=== PATIENT | female | born 1990 | race Caucasian/White ===

== ENCOUNTER 2019-07-22 08:11 | Inpatient (IN) ==
[2019-07-22] MEDS ORDERED: ONDANSETRON INJ 2 MG/ML 2 ML VIAL IV STA (08:28)
[2019-07-22] MEDS ORDERED: ACETAMINOPHEN 1,000 MG/100 ML VIAL IV STA (08:28)
[2019-07-22] MEDS ORDERED: SODIUM CHLORIDE 0.9% 1000ML 1,000 ML IV ONE (08:28)
[2019-07-22] MEDS ORDERED: DICLOFENAC SOD 1% GEL 100 GM TUBE EXT STA (08:28)
[2019-07-22 09:19] LABS: Basophils # (auto) 0.02 K/uL (0-0.2); Basophils % (auto) 0.1 %; Eosinophils # (auto) 0.02 K/uL (0-0.5); Eosinophils % (auto) 0.1 %; Hematocrit (blood only) 35.6 % (37-47); Hemoglobin 12.1 g/dL (12.0-16.0); Immature Granulocytes # (auto) 0.08 K/uL (0.00-0.02); Immature Granulocytes % (auto) 0.3 %; Lymphocytes # (auto) 2.16 K/uL (1.2-3.4); Lymphocytes % (auto) 8.8 %; Mean Corpuscular Hemoglobin 31.9 pg (25-34); Mean Corpuscular Volume 93.9 fL (80-100); Monocytes # (auto) 2.65 K/uL (0.11-0.59); Monocytes % (auto) 10.8 %; Neutrophils # (auto) 19.51 K/uL (1.4-6.5); Neutrophils % (auto) 79.9 %; Platelet Count 360 K/uL (130-400); RDW Coefficient of Variation 12.7 % (11.5-14.5); RDW Standard Deviation 43.8 fL (36.4-46.3); Red Blood Count 3.79 M/uL (4.2-5.4); White Blood Count 24.44 K/uL (4.8-10.8)
[2019-07-22 09:37] LABS: Alanine Aminotransferase 33 U/L (12-78); Albumin Level 3.6 gm/dl (3.4-5.0); Aspartate Aminotransferase 13 U/L (15-37); Blood Urea Nitrogen 10 mg/dl (7-18); Carbon Dioxide 26 mmol/L (21-32); Chloride 103 mmol/L (98-107); Creatinine Clr Calc Pharmacy 131.5 ml/min; Est GFR (African American) 147.9; Est GFR (Non-African American) 127.6; Glucose 106 mg/dl (70-99); Potassium 3.3 mmol/L (3.5-5.1); Sodium 135 mmol/L (136-145)
[2019-07-22 09:39] LABS: Pregnancy Test, Serum Negative (Negative)
[2019-07-22 09:41] LABS: D Dimer 370 ug/L FEU (0-500)
[2019-07-22 09:42] LABS: Albumin Globulin Ratio 0.9 (0.9-2); Alkaline Phosphatase 74 U/L (45-117); Bilirubin,Total 0.7 mg/dl (0.2-1); Total Protein 7.6 gm/dl (6.4-8.2); Troponin I < 0.015 ng/ml (0-0.045)
--- NOTE | 2019-07-22 10:14 | XRay Report ---
XR chest 2V PA/lateral CLINICAL HISTORY: 28 years-old Female presenting with right thoracic back pain. TECHNIQUE: PA and lateral views of the chest were obtained. COMPARISON: None. FINDINGS: Cardiomediastinal silhouette normal. Lungs and pleural spaces clear. Osseous structures normal. Upper abdomen normal. IMPRESSION: 1. No acute cardiopulmonary disease. ACT 112: Negative or not required by law. Electronically signed by: Jose Crawford M.D. 07/22/2019 10:13 AM
--- NOTE | 2019-07-22 10:32 | XRay Report ---
XR thoracic spine 3V routine CLINICAL HISTORY: right thoracic back pain COMPARISON STUDY: No previous studies for comparison. FINDINGS: No thoracic spine fracture is noted. No osseous lesion is identified by radiography. Patien t is mildly rotated. Disc spaces are preserved. IMPRESSION: No thoracic spine fracture or subluxation. ACT 112: Negative or not required by law. Electronically signed by: Reece Kohler M.D. 07/22/2019 10:31 AM
[2019-07-22] MEDS ORDERED: KETOROLAC TROMETHAMINE 15 MG/ML VIAL IV ONE ×2 (11:38→21:59)
[2019-07-22] MEDS ORDERED: GADOBUTROL 65ML VIAL IV PRN (14:18)
--- NOTE | 2019-07-22 14:37 | Magnetic Resonance Report ---
MR thoracic spine wo/w con CLINICAL HISTORY: 28 years-old Female presenting with back pain, ivda. TECHNIQUE: Multisequence, multiplanar MR imaging of the thoracic spine was performed before and after the administration of intravenous contrast. IV contrast: 6 mL of Gadavist. COMPARISON: Radiographs from earlier the same day. FINDINGS: Localizer images: Unremarkable. Normal thoracic kyphosis. Vertebral bodies maintain normal height, alignment, and bone marrow signal intensity. Intervertebral discs preserved apart from small disc osteophyte complex at T6-7, which varghese s not result in significant spinal canal narrowing. No epidural collection. Muscle edema noted in the right paraspinal region extending from T1 superiorly to T10 inferiorly and most severely affecting the T3-T7 levels. Diffuse increased enhancement of this region on postcontras t imaging. Patchy enhancement without evidence of a rim-enhancing collection. No evidence of abscess. This abnormal enhancement does not appear to extend into the epidural region. There is also associat ed abnormal enhancement of the right pleura. Trace right pleural effusion noted. Flow-voids within the vasculature preserved. Visualized portion of the lung parenchyma with minimal d ependent changes on the right. No focal nodule or infiltrate is appreciated allowing for the sensitiv ity of MRI. IMPRESSION: 1. Extensive muscle inflammation and abnormal enhancement in the right paraspinal musculature throug hout the thoracic region. This is concerning for infectious myositis. 2. No abscess or epidural extension is appreciated. No associated evidence of septic facet arthritis or discitis osteomyelitis. However, there is associated trace right pleural effusion and pleuritis. ACT 112: Negative or not required by law. Electronically signed by: Jose Crawford M.D. 07/22/2019 2:36 PM
[2019-07-22] MEDS ORDERED: VANCOMYCIN CONSULT ACTIVE ONE (14:42)
[2019-07-22] MEDS ORDERED: VANCOMYCIN CONSULT ACTIVE PRN (14:42)
[2019-07-22] MEDS ORDERED: VANCOMYCIN HCL 1,250 MG in SODIUM CHLORIDE 0.9% 500 ML IV ONE (14:42)
[2019-07-22] MEDS ORDERED: PIPERACILLIN/TAZOBACTAM 4.5 GM/120 ML BAG IV ONE (14:43)
[2019-07-22] MEDS ORDERED: PIPERACILL/TAZOBAC CONSULT ACTIVE PRN (14:43)
--- NOTE | 2019-07-22 14:43 | Magnetic Resonance Report ---
MRI OF THE LUMBAR SPINE WITH AND WITHOUT CONTRAST CLINICAL HISTORY: back pain, ivda COMPARISON STUDY: No previous studies for comparison. TECHNIQUE: Utilizing a 1.5 Cary magnet and dedicated coil, multiplanar, multiecho imaging of the sotero mbar spine was performed before and after uneventful IV administration of 6 mL of Gadavist. FINDINGS: Alignment of the lumbar spine is anatomic. Vertebral body heights are maintained. There is no marrow edema or marrow placement. No intracanalicular mass or fluid collection is present. The conus termina shonda at the upper L1 level. Paravertebral soft tissues are unremarkable. Incidental note is made of sm all gallstones within the gallbladder. Disc spaces are preserved. L1-2: The central canal and neural foramen are patent. L2-3: The central canal and neural foramen are patent L3-4: The central canal and neural foramen are patent L4-5: The central canal and neural foramen are patent L5-S1: The central canal and neural foramen are patent IMPRESSION: 1. Normal MRI of the lumbar spine. 2. Cholelithiasis. ACT 112: Negative or not required by law. Electronically signed by: Reece Kohler M.D. 07/22/2019 2:41 PM
--- NOTE | 2019-07-22 16:02 | Electrocardiogram Report ---
Test Reason : Blood Pressure : / mmHG Vent. Rate : 092 BPM Atrial Rate : 092 BPM P-R Int : 150 ms QRS Dur : 096 ms QT Int : 352 ms P-R-T Axes : 056 062 053 degrees QTc Int : 435 ms Normal sinus rhythm Possible Left atrial enlargement Left ventricular hypertrophy Abnormal ECG No previous ECGs available Confirmed by Fritz Noble ([id number]) on 07/22/2019 4:02:17 PM Referred By: Confirmed By:Fritz Noble
[2019-07-22] MEDS ORDERED: POTASSIUM CHLORIDE 20 MEQ TABCR PO STA (16:32)
--- NOTE | 2019-07-22 16:36 | History & Physical Report ---
Date of Service July 22, 2019 Assessment & Plan (1) Back pain: (2) Leukocytosis: (3) Myositis: Pt is 28 y/o F with PMH IV drug abuse, chronic hepatitis C, Chiari malformation, depression presented to ER with complaint of right upper back pain x 3 days. Complains of sharp pain over right scapular region which has increased over the past 3 days. Denies any radiation of pain or extremity pain. Denies fever/chills. In ER afebrile, P: 97, R: 20, BP: 118/74, 98% on RA. WBC: 24, H/H: 12/35. Pt difficult venous access, no lactate drawn T-SPINE MRI: 1. Extensive muscle inflammation and abnormal enhancement in the right paraspinal musculature throughout the thoracic region. This is concerning for infectious myositis. 2. No abscess or epidural extension is appreciated. No associated evidence of septic facet arthritis or discitis osteomyelitis. However, there is associated trace right pleural effusion and pleuritis. L-SPINE MRI: 1. Normal MRI of the lumbar spine. 2. Cholelithiasis. Possible Infectious myositis paraspinous musculature No sign of abscess, discitis or osteomyelitis on MRI spine -In ER given Zosyn, vancomycin, 1L NSS, Toradol, IV Tylenol, Zofran -Blood cultures pending -ESR, CRP pending -Zosyn, vancomycin -IVF -CBC, BMP in am -If would develop other signs of abscess or worsening consider surgery consult (4) IV drug abuse: H/O IV Heroin, IV Suboxone use. Reports last used 04/2019 -Urine tox screen pending (5) Hypokalemia: K: 3.3 -replace and monitor (6) Chronic hepatitis C: Not treated; Was following with graphic engineer in 2019 and was to have treatment however never followed up. LFTs WNL (7) Tobacco abuse: -Smoking cessation recommended -Nicotine patch DVT Prophylaxis -Low risk, ambulate Full Code Does not Follows with PCP for routine care Pt was seen and care coordinated with Dr Blanton. See addendum History of Present Illness Chief Complaint: Back pain Primary Care Provider: NO PCP Pt is 28 y/o F with PMH IV drug abuse, chronic hepatitis C, Chiari malformation, depression presented to ER with complaint of right upper back pain x 3 days. Complains of sharp pain over right scapular region which has increased over the past 3 days. Denies any radiation of pain. Denies pain to neck, lower back, arms or chest. Denies any noted skin discolorations or erythema over the area or any drainage. Denies any injury or trauma. Denies any injections to the area. History IV heroin and IV Suboxone use. Patient reports last used April 2019 and injects to arms only. Denies any noted fever or chills. States a little nauseated today which she associated secondary to pain. She took [id number] ibuprofen without relief and took 1 oxycodone which she reports was her family members medication without relief. Reports chronic acne to face, chest, back, denies any other known rashes. Denies diaphoresis, V/D/C, REAVES, dizziness, syncope, vision changes, neck pain, CP, SOB, orthopnea, palpitations, cough, sore throat, choking, otalgia, rhinorrhea, abdominal pain, paresthesias, weakness, extremity weakness, extremity edema, urinary symptoms. Allergies Allergy/AdvReac Type Severity Reaction Status Date / Time No Known Allergies Allergy Unverified 07/22/19 08:35 Home Medications Home Medications Medication Instructions Recorded Confirmed Type ibuprofen 200 mg PO Q6H PRN 07/22/19 07/22/19 History Past Med/Surg History Medical History (Updated 07/22/19 @ 16:53 by Nathaly Sanchez PA-C) Chiari I malformation Chronic hepatitis C Depression IV drug abuse Tobacco abuse Surgical History (Updated 07/22/19 @ 16:34 by Nathaly Sanchez PA-C) History of tonsillectomy and adenoidectomy Family History (Updated 07/22/19 @ 16:43 by Nathaly Sanchez PA-C) Brother Hepatitis C Mother Hepatitis C Depression Social History (Updated 07/22/19 @ 16:44 by Nathaly Sanchez PA-C) Preferred Language: Serbian Communication Ability: Effective 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 Beliefs That Will Affect Care: None Current Living Situation: Family Current Living Situation Comment: grandmother and girlfriend Other Information That Helps Us Care for You: No Feels Safe at Home: Yes Safety Concerns: Feels Safe At This Time Smoking Status: Current every day smoker Tobacco Type: cigarettes ; Cigarettes Per Day: 1/2 ppd ; Do You Dip or Chew Tobacco: No ; Tobacco Cessation Education Requested by Patient: No Hx Alcohol Use: No Hx Substance Use: Yes substance use type: former substance user Last Used Substance Other:: pt states last use was april Review of Systems Review of Systems: All systems reviewed & are unremarkable except as noted in HPI & below Physical Exam Physical Exam: General: no distress, WDWN Head: normocephalic, atraumatic Eyes: PERRL, EOM's intact, conjunctiva non-injected, anicteric ENT: normal inspection external ears, nose, mucous membranes moist Neck: supple, trachea midline, non-tender; ROM intact Lungs: clear, no respiratory distress, no wheezing/rhonchi/rales CV: RRR, no murmur, no pretibial edema Abd: normal BS, soft, non-tender Back: Right scapula with noted edema without erythema or warmth or fluctuance with tenderness to palpation with tenderness extending to right thoracic paraspinous musculature. No spinous process tenderness to cervical, thoracic or lumbar spinous processes; ROM intact with tenderness with rotation Ext: no cyanosis, no calf tenderness; ROM bilateral upper and lower extremities intact, distal pulses intact, No noted abscesses Neuro: A&O x 3, no focal deficits noted, normal affect Skin: warm, dry; +erythematous papules to face, back, chest Results & Data Vital Signs (Past 12 Hours) Vital Signs Temp Pulse Pulse Resp BP BP Pulse Ox 07/22/19 15:20 78 16 117/58 L 97 07/22/19 13:00 86 16 130/72 99 07/22/19 12:09 84 18 119/56 L 100 07/22/19 10:17 92 H 20 116/71 97 07/22/19 08:16 36.8 C 97 H 20 118/74 98 Laboratory Results Short CBC 07/22/19 Range/Units 09:08 WBC 24.44 H (4.8-10.8) K/uL Hgb 12.1 (12.0-16.0) g/dL Hct 35.6 L (37-47) % Plt Count 360 (130-400) K/uL BMP 07/22/19 09:08 Sodium 135 L Potassium 3.3 L Chloride 103 Carbon Dioxide 26 BUN 10 Creatinine 0.55 L Glucose 106 H Calcium 9.0 Cardiac Enzymes 07/22/19 07/22/19 Range/Units 09:08 15:54 Total Creatine Kinase 40 (26-192) U/L Troponin I < 0.015 (0-0.045) ng/ml Liver Function 07/22/19 Range/Units 09:08 Total Bilirubin 0.7 (0.2-1) mg/dl AST 13 L (15-37) U/L ALT 33 (12-78) U/L Alkaline Phosphatase 74 (45-117) U/L Albumin 3.6 (3.4-5.0) gm/dl Diagnostic Findings CXR: IMPRESSION: 1. No acute cardiopulmonary disease. T-SPINE XRAY: IMPRESSION: No thoracic spine fracture or subluxation. T-SPINE MRI: IMPRESSION: 1. Extensive muscle inflammation and abnormal enhancement in the right paraspinal musculature throughout the thoracic region. This is concerning for infectious myositis. 2. No abscess or epidural extension is appreciated. No associated evidence of septic facet arthritis or discitis osteomyelitis. However, there is associated trace right pleural effusion and pleuritis. L-SPINE MRI: IMPRESSION: 1. Normal MRI of the lumbar spine. 2. Cholelithiasis. Code Status & VTE Plan VTE Prophylaxis Plan VTE Prophylaxis will be ordered: No Supervising Physician Co-Signing Physician Notes Attending addendum The patient was seen and examined in emergency room She admits to have twisting injury involving the back about 3 days back Has been complaining of severe pain medial to right scapula without radiation Denies any fever and/or chills She is an IV drug abuser last use in April of last year On examination She is in severe pain Crying in the emergency room with pain Hemodynamically stable Chest-clear to auscultate bilaterally. CVA tenderness noted medial part of the scapula on the right side. 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, No focal sensory and/or motor deficit appreciated Admission labs, imaging studies reviewed Has significant elevation of the white count and MRI of the thoracic spine did show paraspinal muscle inflammation without involvement of the vertebrae Blood cultures were taken and started with intravenous vancomycin and Zosyn Agree with assessment plan as outlined above by MARYJANE Bautista Dr (1) Back pain Back pain laterality: unspecified Back pain location: thoracic back pain Chronicity: acute Qualified Code(s): M54.6 - Pain in thoracic spine (2) Leukocytosis Leukocytosis type: unspecified Qualified Code(s): D72.829 - Elevated white blood cell count, unspecified (3) Myositis Myositis location: unspecified site Myositis type: unspecified type Qualifi ed Code(s): M60.9 - Myositis, unspecified
[2019-07-22] MEDS ORDERED: HYDROmorphone INJ 1 MG/ML SYRINGE IV STA (17:02)
[2019-07-22] MEDS ORDERED: HYDROmorphone INJ 1 MG/ML SYRINGE ONE ×2 (17:38→18:24)
[2019-07-22] MEDS ORDERED: CONSULT PHARMACY STA (18:02)
[2019-07-22] MEDS: SODIUM CHLORIDE 0.9% 1000ML 1,000 ML IV SCH (18:02)
[2019-07-22] MEDS ORDERED: ONDANSETRON INJ 2 MG/ML 2 ML VIAL IV PRN (18:02)
[2019-07-22] MEDS ORDERED: POLYETHYLENE (MIRALAX) 17 GM PACK PO PRN (18:02)
[2019-07-22] MEDS: NICOTINE 14 MG/24 HR PATCH TD SCH (18:58)
[2019-07-22] MEDS: KETOROLAC TROMETHAMINE 15 MG/ML VIAL IV PRN (19:03)
[2019-07-22] MEDS: TRAMADOL HCL 50 MG TABLET PO PRN (19:58)
[2019-07-22 20:05] LABS: Appearance Urine Cloudy (Clear); Bacteria Urine Automated 2+ (Negative); Bilirubin Urine Negative (Negative); Blood Urine 1+ (Negative); Cast Urine Automated 0 /lpf (0-5); Color Urine Yellow; Epithelial Cell Urine Auto >30 /lpf (0-5); Glucose Urine UA Negative (Negative); Ketones Urine 1+ (Negative); Leukocyte Esterase Urine 1+ (Negative); Nitrite Urine Positive (Negative); Protein Urine Negative (Negative); RBC Urine Automated 0-4 /hpf (0-4); Specific Gravity Urine 1.021 (1.000-1.030); Urobilinogen Urine Negative (Negative); pH Urine 5.5 (4.5-7.5)
[2019-07-22 20:33] LABS: Amphetamines+Metham, Urine Neg (Neg); Barbiturates, Urine Neg (Neg); Benzodiazepine, Urine Neg (Neg); Cocaine, Urine Neg (Neg); MDMA (Ecstacy), Urine Pos (Neg); Methadone, Urine Neg (Neg); Opiate, Urine Pos (Neg); Phencyclidine, Urine Neg (Neg)
[2019-07-22] MEDS: MoRPHine SULFATE 2 MG/ML CARP IV PRN (20:58)
--- NOTE | 2019-07-22 21:06 | Pharmacy Report ---
Pharmacy Abx Initial Consult - Date of Service July 22, 2019 - Pharmacy Dosing Scope Date of Consult: 07/22/19 Consultation requested by: Nathaly Sanchez PA-C Pharmacy is consulted to initiate vanc/zosyn IV dosing therapy, order appropriate labs and adjust drug dose/frequency. - Subjective The patient is a 28 year old F admitted on 07/22/19 16:02. - Objective Height: 5 ft 4 in Weight: 65 kg Vital Signs (Past 12hrs): Vital Signs Temp Pulse Pulse Resp BP BP BP 07/22/19 18:57 37.1 C 92 H 20 112/64 07/22/19 18:41 82 07/22/19 18:13 36.7 C 81 18 115/76 07/22/19 18:12 36.7 C 81 20 115/76 07/22/19 17:34 80 16 117/58 L 07/22/19 15:20 78 16 117/58 L 07/22/19 13:00 86 16 130/72 07/22/19 12:09 84 18 119/56 L 07/22/19 10:17 92 H 20 116/71 Pulse Ox 07/22/19 18:57 100 07/22/19 18:41 07/22/19 18:13 96 07/22/19 18:12 96 07/22/19 17:34 97 07/22/19 15:20 97 07/22/19 13:00 99 07/22/19 12:09 100 07/22/19 10:17 97 Lab Results (24hrs): Laboratory Tests (24 Hours) 07/22/19 07/22/19 07/22/19 15:54 15:54 09:08 WBC Neut # (Auto) ESR 34 H Creatinine Est Cr Clr Drug Dosing Total Creatine Kinase 40 C-Reactive Protein 7.96 H Procalcitonin 07/22/19 07/22/19 07/22/19 09:08 09:08 09:08 WBC 24.44 H Neut # (Auto) 19.51 H ESR Creatinine 0.55 L Est Cr Clr Drug Dosing 131.5 Total Creatine Kinase C-Reactive Protein Procalcitonin < 0.05 Micro Results: 07/22/19 19:30 Urine Culture - Pending Urine,Clean Catch 07/22/19 16:16 Aerobic Blood Culture - Pending Blood Anaerobic Blood Culture - Pending 07/22/19 15:54 Aerobic Blood Culture - Pending Blood Anaerobic Blood Culture - Pending - Assessment & Plan Assessment * 28 year old F who presented to [facility] with R upper back pain * MRI spine showed extensive muscle inflammation, possible infectious myositis * Urine and blood cultures collected and pending Plan Vancomycin IV * Estimated PK Parameters: Vd 0.7 L/kg, Edgar 0.083 hr-1, t1/2 8 hr * Loading dose: 1250 mg (19 mg/kg) * Maintenance dose: 1000 mg IV ([15mg/kg) every 8 hours * Goal trough level: 15-20 mcg/mL * Trough/Random level ordered for 07/24/19 at 0730 Piperacillin/tazobactam * 4.5 g bolus administered over 30 minutes, then 3.375 g IV extended infusion every 8 hours for CrCl greater than 20 mL/min Pharmacy will continue to follow and will adjust dose/frequency as necessary. Thank you.
[2019-07-22] MEDS: PIPERACILLIN/TAZOBACTAM 3.375 GM in DEXTROSE 5% 100 ML IV SCH (21:25)
[2019-07-23] MEDS: VANCOMYCIN HCL 1,000 MG in SODIUM CHLORIDE 0.9% 250 ML IV SCH ×4 (01:06→23:51)
[2019-07-23] MEDS: KETOROLAC TROMETHAMINE 15 MG/ML VIAL IV PRN ×4 (01:06→23:51)
[2019-07-23] MEDS: SODIUM CHLORIDE 0.9% 1000ML 1,000 ML IV SCH (02:09)
[2019-07-23] MEDS: MoRPHine SULFATE 2 MG/ML CARP IV PRN ×2 (03:39→08:16)
[2019-07-23] MEDS: TRAMADOL HCL 50 MG TABLET PO PRN (05:03)
[2019-07-23] MEDS: PIPERACILLIN/TAZOBACTAM 3.375 GM in DEXTROSE 5% 100 ML IV SCH ×3 (06:03→22:07)
[2019-07-23] MEDS ORDERED: HYDROmorphone INJ 1 MG/ML SYRINGE IV STA (06:29)
[2019-07-23 06:30] LABS: Hematocrit (blood only) 30.5 % (37-47); Mean Corpuscular Hemoglobin 31.2 pg (25-34); Mean Corpuscular Hgb Conc 32.8 g/dL (32-36); Mean Platelet Volume 10.5 fL (7.4-10.4); Platelet Count 287 K/uL (130-400); RDW Coefficient of Variation 12.8 % (11.5-14.5); RDW Standard Deviation 44.4 fL (36.4-46.3); Red Blood Count 3.21 M/uL (4.2-5.4); White Blood Count 27.07 K/uL (4.8-10.8)
[2019-07-23 06:56] LABS: BUN Creatinine Ratio 17.5 (10-20); Blood Urea Nitrogen 9 mg/dl (7-18); Calcium 8.3 mg/dl (8.5-10.1); Carbon Dioxide 23 mmol/L (21-32); Chloride 108 mmol/L (98-107); Creatinine Clr Calc Pharmacy 157.1 ml/min; Est GFR (African American) > 150.0; Est GFR (Non-African American) 131.7; Glucose 94 mg/dl (70-99); Potassium 3.3 mmol/L (3.5-5.1); Sodium 137 mmol/L (136-145)
[2019-07-23 07:37] LABS: Basophils # (auto) 0.04 K/uL (0-0.2); Basophils % (auto) 0.1 %; Eosinophils # (auto) 0.07 K/uL (0-0.5); Eosinophils % (auto) 0.3 %; Immature Granulocytes # (auto) 0.14 K/uL (0.00-0.02); Immature Granulocytes % (auto) 0.5 %; Lymphocytes # (auto) 3.06 K/uL (1.2-3.4); Lymphocytes % (auto) 11.3 %; Monocytes # (auto) 2.51 K/uL (0.11-0.59); Monocytes % (auto) 9.3 %; Neutrophils # (auto) 21.25 K/uL (1.4-6.5); Neutrophils % (auto) 78.5 %
--- NOTE | 2019-07-23 07:51 | Emergency Department Note ---
Entered by Kiya Smalls acting as a scribe for History of Present Illness General Chief complaint: Back Injury/Pain Stated complaint: BACK PAIN, SOB LAST 3 DAYS Time Seen by Provider: 07/22/19 08:21 Source: patient History of Present Illness Onset (ago): day(s) 3 Location: back Radiation: other (chest) Pain Consistency: + constant (constant worsening pain) Maximum Pain Intensity: 10 Quality: + other (back pain) Relieved By: not by medication (Ibuprofen, Percocet) Associated symptoms: + nausea/vomiting (Positive nausea. Negative vomiting. ), + shortness of breath and + other (Positive upper back pain, tingling fingers. Negative dizziness.); no fever/chills The patient is a 28 year old male presenting to the Emergency Department complaining of worsening back pain starting 3 days ago. The patient reports that she has constant upper back pain. She states that this pain is worse on her right side than her left. She explains that this back pain radiates into her chest. She notes that some of her fingers are tingling. She adds that this pain makes her short of breath and nauseous. The patient reports that she hasnt been able to sleep at night because of this pain. She states that she has been lif ting one of her family members in and out of a wheelchair. She notes that she has been taking Ibuprofen and Percocet that havent improved her pain. She adds that she has experienced back pain before because of her Chiari 1 malformation but that was high in her neck. The patient denies recent fevers, chills, vomiting and dizziness. Home Medications Home Medications Medication Instructions Recorded Confirmed Type ibuprofen 200 mg PO Q6H PRN 07/22/19 07/22/19 History Allergies Allergy/AdvReac Type Severity Reaction Status Date / Time No Known Allergies Allergy Unverified 07/22/19 08:35 Past Med/Surg History Medical History (Updated 07/22/19 @ 16:53 by Nathaly Sanchez PA-C) Chiari I malformation Chronic hepatitis C Depression IV drug abuse Tobacco abuse Surgical History (Updated 07/22/19 @ 16:34 by Nathlay Sanchez PA-C) History of tonsillectomy and adenoidectomy Family History (Updated 07/22/19 @ 16:43 by Nathaly Sanchez PA-C) Brother Hepatitis C Mother Hepatitis C Depression Social History (Updated 07/22/19 @ 16:44 by Nathaly Sanchez PA-C) Preferred Language: Bolivian Communication Ability: Effective 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 Analyst Required: No Beliefs That Will Affect Care: None Current Living Situation: Family Current Living Situation Comment: grandmother and girlfriend Other Information That Helps Us Care for You: No Feels Safe at Home: Yes Safety Concerns: Feels Safe At This Time Smoking Status: Current every day smoker Tobacco Type: cigarettes ; Cigarettes Per Day: 1/2 ppd ; Do You Dip or Chew Tobacco: No ; Tobacco Cessation Education Requested by Patient: No Hx Alcohol Use: No Hx Substance Use: Yes substance use type: former substance user Last Used Substance Other:: pt states last use was april Review of Systems See HPI for pertinent positives & negatives. and A total of 10 systems reviewed and were otherwise negative Physical Exam Vital Signs Vital Signs - 24 hr 07/22/19 08:16 07/22/19 10:17 07/22/19 12:09 Temperature 36.8 C Temperature Source Oral Pulse Rate 97 H Pulse Rate [Right Finger] 92 H 84 Pulse Rhythm [Right Finger] Regular Pulse Strength [Right Finger] Normal Respiratory Rate 20 20 18 Respiratory Effort / Characteristics Non-Labored Spontaneous Non-Labored Spontaneous Non-Labored Spontaneous Respiratory Depth Normal Normal Normal Respiratory Pattern Regular Regular Regular Blood Pressure 118/74 Blood Pressure [Left Arm] 116/71 119/56 L Blood Pressure Mean 88 Blood Pressure Mean [Left Arm] 86 77 Blood Pressure Position [Left Arm] Lying Pulse Oximetry 98 97 100 Oxygen Delivery Method Room Air Room Air Room Air Sepsis Recent Fever Within 48 Hours No Sepsis Action Taken by Nursing No Action Required 07/22/19 13:00 07/22/19 15:20 Temperature Temperature Source Pulse Rate Pulse Rate [Right Finger] 86 78 Pulse Rhythm [Right Finger] Regular Regular Pulse Strength [Right Finger] Respiratory Rate 16 16 Respiratory Effort / Characteristics Non-Labored Spontaneous Non-Labored Spontaneous Respiratory Depth Normal Normal Respiratory Pattern Regular Regular Blood Pressure Blood Pressure [Left Arm] 130/72 117/58 L Blood Pressure Mean Blood Pressure Mean [Left Arm] 91 77 Blood Pressure Position [Left Arm] Pulse Oximetry 99 97 Oxygen Delivery Method Room Air Room Air Sepsis Recent Fever Within 48 Hours Sepsis Action Taken by Nursing GENERAL: alert, well appearing, well nourished, moderate distress, non-toxic EYE EXAM: normal conjunctiva, PERRL and EOM's grossly intact OROPHARYNX: no exudate, no erythema, lips, buccal mucosa, and tongue normal and mucous membranes are dry NECK: supple, no nuchal rigidity, no adenopathy, non-tender LUNGS: Clear to auscultation. Normal chest wall mechanics HEART: no murmurs, S1 normal and S2 normal ABDOMEN: abdomen soft, non-tender, normo-active bowel sounds, no masses, no rebound or guarding. BACK: Pain with palpation of the right paraspinal region of the mid thoracic spine st the level of the tip of the scapula. Back is symmetrical on inspection and there is no deformity, no CVA tenderness. SKIN: Evidence of multiple excoriative lesions in various stages of healing. No bruising. UPPER EXTREMITIES: upper extremities are grossly normal. FROM, nml pulses b/l. LOWER EXTREMITIES: No pitting edema. FROM, nml pulses b/l. NEURO EXAM: Normal sensorium, cranial nerves II-XII grossly intact, normal speech, no gross weakness of arms, no gross weakness of legs. Course Course 08: The patient was evaluated in room B8, and a complete history and physical examination were performed. 0829: PDMP negative. 1048: I reevaluated the patient at this time who was sleeping when I entered the room. She is easily arousable. She states that her back pain is currently 7/10. She admits to a history of IV drug use and explains that she last used IV drugs 2 months ago. 1303: The patients nurse reports that she spoke with MRI who reported that they will try to take the patient as soon as possible. 1435: I updated the patient at this time. 1524: I discussed the patient's case with Jaye Sanchez [facility]. Administered Medications Sodium Chloride (Nss 1000ml) 1,000 mls @ 125 mls/hr IV .Q8H ISELA Stop: 07/23/19 08:36 Last Admin: 07/23/19 02:09 Dose: 125 mls/hr Documented by: [id number] Infusion: 07/23/19 02:02 Dose: 125 mls/hr Documented by: [id number] Admin: 07/22/19 18:02 Dose: 125 mls/hr Documented by: [id number] Piperacillin Sod/Tazobactam (Sod 3.375 gm/ Dextrose) 115 mls @ 28.75 mls/hr IV Q8H ISELA; Protocol Stop: 07/29/19 21:59 Last Admin: 07/23/19 06:03 Dose: 28.8 mls/hr Documented by: [id number] Infusion: 07/23/19 01:25 Dose: 0 mls/hr Documented by: [id number] Admin: 07/22/19 21:25 Dose: 28.8 mls/hr Documented by: [id number] Vancomycin HCl 1,000 mg/ (Sodium Chloride) 270 mls @ 125 mls/hr IV Q8H ISELA; Protocol Stop: 07/30/19 00:00 Last Infusion: 07/23/19 04:34 Dose: 0 mls/hr Documented by: [id number] Admin: 07/23/19 01:06 Dose: 125 mls/hr Documented by: [id number] Ketorolac Tromethamine (Toradol) 15 mg IV Q6H PRN PRN Reason: Pain Stop: 07/24/19 18:40 Last Admin: 07/23/19 01:06 Dose: 15 mg Documented by: [id number] Admin: 07/22/19 19:03 Dose: 15 mg Documented by: [id number] Morphine Sulfate (Morphine Sulfate) 2 mg IV Q4H PRN PRN Reason: Severe Pain Stop: 08/05/19 18:01 Last Admin: 07/23/19 03:39 Dose: 2 mg Documented by: [id number] Admin: 07/22/19 20:58 Dose: 2 mg Documented by: [id number] Nicotine (Nicoderm Cq) 14 mg TD QAM ISELA Stop: 08/21/19 18:01 Last Admin: 07/22/19 18:58 Dose: 14 mg Documented by: [id number] Tramadol HCl (Ultram) 50 mg PO Q6H PRN PRN Reason: Moderate Pain Stop: 08/21/19 18:01 Last Admin: 07/23/19 05:03 Dose: 50 mg Documented by: [id number] Admin: 07/22/19 19:58 Dose: 50 mg Documented by: [id number] Discontinued Medications Diclofenac Sodium (Voltaren 1% Top) 2 gm EXT NOW STA Stop: 07/22/19 08:29 Last Admin: 07/22/19 09:11 Dose: 2 gm Documented by: [id number] Gadobutrol (Gadavist 65ml) 6 ml IV ONCE PRN PRN Reason: Interaction Checking Stop: 07/26/19 14:17 Last Admin: 07/22/19 14:18 Dose: 6 ml Documented by: [id number] Hydromorphone HCl (Dilaudid) 1 mg IV NOW STA Stop: 07/22/19 17:03 Last Admin: 07/22/19 18:25 Dose: 1 mg Documented by: [id number] Hydromorphone HCl (Dilaudid) Confirm Administered Dose 1 mg .ROUTE .STK-MED ONE Stop: 07/22/19 17:39 Last Admin: 07/22/19 17:40 Dose: 1 mg Documented by: [id number] Hydromorphone HCl (Dilaudid) Confirm Administered Dose 1 mg .ROUTE .STK-MED ONE Stop: 07/22/19 18:25 Last Admin: 07/22/19 18:25 Dose: Not Given Documented by: [id number] Hydromorphone HCl (Dilaudid) 1 mg IV NOW STA Stop: 07/23/19 06:30 Last Admin: 07/23/19 06:43 Dose: 1 mg Documented by: [id number] Acetaminophen (Ofirmev) 1,000 mg in 100 mls @ 400 mls/hr IV NOW STA Stop: 07/22/19 08:42 Last Infusion: 07/22/19 09:41 Dose: 0 mls/hr Documented by: [id number] Admin: 07/22/19 09:10 Dose: 400 mls/hr Documented by: [id number] Sodium Chloride (Nss 1000ml) 1,000 mls @ 999 mls/hr IV .Q1H1M ONE Stop: 07/22/19 09:28 Last Infusion: 07/22/19 17:33 Dose: 0 mls/hr Documented by: [id number] Infusion: 07/22/19 17:07 Dose: 999 mls/hr Documented by: [id number] Infusion: 07/22/19 09:47 Dose: 0 mls/hr Documented by: [id number] Admin: 07/22/19 09:11 Dose: 999 mls/hr Documented by: [id number] Vancomycin HCl 1,250 mg/ (Sodium Chloride) 525 mls @ 200 mls/hr IV NOW ONE Stop: 07/22/19 17:19 Last Infusion: 07/22/19 19:50 Dose: 0 mls/hr Documented by: [id number] Admin: 07/22/19 17:07 Dose: 200 mls/hr Documented by: [id number] Piperacillin Sod/Tazobactam Sod (Zosyn) 4.5 gm in 120 mls @ 240 mls/hr IV NOW ONE Stop: 07/22/19 15:12 Last Infusion: 07/22/19 16:58 Dose: 0 mls/hr Documented by: [id number] Admin: 07/22/19 16:26 Dose: 240 mls/hr Documented by: [id number] Ketorolac Tromethamine (Toradol) 10 mg IV NOW ONE Stop: 07/22/19 11:39 Last Admin: 07/22/19 12:00 Dose: 10 mg Documented by: [id number] Ketorolac Tromethamine (Toradol) 15 mg IV NOW ONE Stop: 07/22/19 22:00 Last Admin: 07/22/19 22:03 Dose: 15 mg Documented by: [id number] Miscellaneous Information (Consult) 1 ea N/A UD ONE Stop: 07/22/19 14:43 Last Admin: 07/23/19 07:20 Dose: Not Given Documented by: [id number] Ondansetron HCl (Zofran) 4 mg IV NOW STA Stop: 07/22/19 08:29 Last Admin: 07/22/19 09:10 Dose: 4 mg Documented by: [id number] Potassium Chloride (Klor-Con M20) 40 meq PO NOW STA Stop: 07/22/19 16:33 Last Admin: 07/22/19 18:58 Dose: 40 meq Documented by: [id number] Medical Decision Making Differential Diagnosis Etiologies such as musculoskeletal, disc herniation, fracture, aortic disease, metastatic disease, cord compression, discitis, infection, renal colic, gastrointestinal, acute exacerbation of chronic back pain, sciatica, cauda equina, as well as others were entertained. Medical Records Attestation: I reviewed the patient's medical records. Home Medications Current Medication List: was personally reviewed by me Laboratory Data Attestation: I reviewed the patient's lab results. Result diagrams: 07/23/19 06:00 07/23/19 06:00 Lab Results 07/22/19 07/22/19 07/22/19 Range/Units 09:08 09:08 09:08 WBC 24.44 H (4.8-10.8) K/uL RBC 3.79 L (4.2-5.4) M/uL Hgb 12.1 (12.0-16.0) g/dL Hct 35.6 L (37-47) % MCV 93.9 (80-100) fL MCH 31.9 (25-34) pg MCHC 34.0 (32-36) g/dL RDW Std Deviation 43.8 (36.4-46.3) fL RDW Coeff of Saba 12.7 (11.5-14.5) % Plt Count 360 (130-400) K/uL MPV 10.0 (7.4-10.4) fL Immature Gran % (Auto) 0.3 % Neut % (Auto) 79.9 % Lymph % (Auto) 8.8 % Glascock % (Auto) 10.8 % Eos % (Auto) 0.1 % Baso % (Auto) 0.1 % Immature Gran # (Auto) 0.08 H (0.00-0.02) K/uL Neut # (Auto) 19.51 H (1.4-6.5) K/uL Lymph # (Auto) 2.16 (1.2-3.4) K/uL Glascock # (Auto) 2.65 H (0.11-0.59) K/uL Eos # (Auto) 0.02 (0-0.5) K/uL Baso # (Auto) 0.02 (0-0.2) K/uL ESR (0-21) mm/hr D-Dimer 370 (0-500) ug/L FEU Sodium 135 L (136-145) mmol/L Potassium 3.3 L (3.5-5.1) mmol/L Chloride 103 (98-107) mmol/L Carbon Dioxide 26 (21-32) mmol/L Anion Gap 6.0 (3-11) BUN 10 (7-18) mg/dl Creatinine 0.55 L (0.6-1.2) mg/dl Est Cr Clr Drug Dosing 131.5 ml/min Est GFR ( Amer) 147.9 Est GFR (Non-Af Amer) 127.6 BUN/Creatinine Ratio 18.0 (10-20) Glucose 106 H (70-99) mg/dl Calcium 9.0 (8.5-10.1) mg/dl Total Bilirubin 0.7 (0.2-1) mg/dl AST 13 L (15-37) U/L ALT 33 (12-78) U/L Alkaline Phosphatase 74 (45-117) U/L Total Creatine Kinase (26-192) U/L Troponin I < 0.015 (0-0.045) ng/ml C-Reactive Protein (0-0.29) mg/dl Total Protein 7.6 (6.4-8.2) gm/dl Albumin 3.6 (3.4-5.0) gm/dl Globulin 4.0 (2.5-4.0) gm/dl Albumin/Globulin Ratio 0.9 (0.9-2) Procalcitonin (0-0.5) ng/ml HCG, Qual (Negative) 07/22/19 07/22/19 07/22/19 Range/Units 09:08 09:08 09:08 WBC (4.8-10.8) K/uL RBC (4.2-5.4) M/uL Hgb (12.0-16.0) g/dL Hct (37-47) % MCV (80-100) fL MCH (25-34) pg MCHC (32-36) g/dL RDW Std Deviation (36.4-46.3) fL RDW Coeff of Saba (11.5-14.5) % Plt Count (130-400) K/uL MPV (7.4-10.4) fL Immature Gran % (Auto) % Neut % (Auto) % Lymph % (Auto) % [place]ascock % (Auto) % Eos % (Auto) % Baso % (Auto) % Immature Gran # (Auto) (0.00-0.02) K/uL Neut # (Auto) (1.4-6.5) K/uL Lymph # (Auto) (1.2-3.4) K/uL Glascock # (Auto) (0.11-0.59) K/uL Eos # (Auto) (0-0.5) K/uL Baso # (Auto) (0-0.2) K/uL ESR 34 H (0-21) mm/hr D-Dimer (0-500) ug/L FEU Sodium (136-145) mmol/L Potassium (3.5-5.1) mmol/L Chloride (98-107) mmol/L Carbon Dioxide (21-32) mmol/L Anion Gap (3-11) BUN (7-18) mg/dl Creatinine (0.6-1.2) mg/dl Est Cr Clr Drug Dosing ml/min Est GFR ( Amer) Est GFR (Non-Af Amer) BUN/Creatinine Ratio (10-20) Glucose (70-99) mg/dl Calcium (8.5-10.1) mg/dl Total Bilirubin (0.2-1) mg/dl AST (15-37) U/L ALT (12-78) U/L Alkaline Phosphatase (45-117) U/L Total Creatine Kinase (26-192) U/L Troponin I (0-0.045) ng/ml C-Reactive Protein (0-0.29) mg/dl Total Protein (6.4-8.2) gm/dl Albumin (3.4-5.0) gm/dl Globulin (2.5-4.0) gm/dl Albumin/Globulin Ratio (0.9-2) Procalcitonin < 0.05 (0-0.5) ng/ml HCG, Qual Negative (Negative) 07/22/19 07/22/19 Range/Units 15:54 15:54 WBC (4.8-10.8) K/uL RBC (4.2-5.4) M/uL Hgb (12.0-16.0) g/dL Hct (37-47) % MCV (80-100) fL MCH (25-34) pg MCHC (32-36) g/dL RDW Std Deviation (36.4-46.3) fL RDW Coeff of Saba (11.5-14.5) % Plt Count (130-400) K/uL MPV (7.4-10.4) fL Immature Gran % (Auto) % Neut % (Auto) % Lymph % (Auto) % Glascock % (Auto) % Eos % (Auto) % Baso % (Auto) % Immature Gran # (Auto) (0.00-0.02) K/uL Neut # (Auto) (1.4-6.5) K/uL Lymph # (Auto) (1.2-3.4) K/uL [place]ock # (Auto) (0.11-0.59) K/uL Eos # (Auto) (0-0.5) K/uL Baso # (Auto) (0-0.2) K/uL ESR (0-21) mm/hr D-Dimer (0-500) ug/L FEU Sodium (136-145) mmol/L Potassium (3.5-5.1) mmol/L Chloride (98-107) mmol/L Carbon Dioxide (21-32) mmol/L Anion Gap (3-11) BUN (7-18) mg/dl Creatinine (0.6-1.2) mg/dl Est Cr Clr Drug Dosing ml/min Est GFR ( Amer) Est GFR (Non-Af Amer) BUN/Creatinine Ratio (10-20) Glucose (70-99) mg/dl Calcium (8.5-10.1) mg/dl Total Bilirubin (0.2-1) mg/dl AST (15-37) U/L ALT (12-78) U/L Alkaline Phosphatase (45-117) U/L Total Creatine Kinase 40 (26-192) U/L Troponin I (0-0.045) ng/ml C-Reactive Protein 7.96 H (0-0.29) mg/dl Total Protein (6.4-8.2) gm/dl Albumin (3.4-5.0) gm/dl Globulin (2.5-4.0) gm/dl Albumin/Globulin Ratio (0.9-2) Procalcitonin (0-0.5) ng/ml HCG, Qual (Negative) Imaging Data Radiologist's Impression: Radiology results as stated below per my review and the radiologist's interpretation: MR thoracic spine wo/w con CLINICAL HISTORY: 28 years-old Female presenting with back pain, ivda. TECHNIQUE: Multisequence, multiplanar MR imaging of the thoracic spine was performed before and after the administration of intravenous contrast. IV contrast: 6 mL of Gadavist. COMPARISON: Radiographs from earlier the same day. FINDINGS: Localizer images: Unremarkable. Normal thoracic kyphosis. Vertebral bodies maintain normal height, alignment, and bone marrow signal intensity. Intervertebral discs preserved apart from small disc osteophyte complex at T6-7, which does not result in significant spinal canal narrowing. No epidural collection. Muscle edema noted in the right paraspinal region extending from T1 superiorly to T10 inferiorly and most severely affecting the T3-T7 levels. Diffuse increased enhancement of this region on postcontrast imaging. Patchy enhancement without evidence of a rim-enhancing collection. No evidence of abscess. This abnormal enhancement does not appear to extend into the epidural region. There is also associated abnormal enhancement of the right pleura. Trace right pleural effusion noted. Flow-voids within the vasculature preserved. Visualized portion of the lung parenchyma with minimal dependent changes on the right. No focal nodule or i nfiltrate is appreciated allowing for the sensitivity of MRI. IMPRESSION: 1. Extensive muscle inflammation and abnormal enhancement in the right paraspinal musculature throughout the thoracic region. This is concerning for infectious myositis. 2. No abscess or epidural extension is appreciated. No associated evidence of septic facet arthritis or discitis osteomyelitis. However, there is associated trace right pleural effusion and pleuritis. ACT 112: Negative or not required by law. Electronically signed by: Jose Crawford M.D. 07/22/2019 2:36 PM MRI OF THE LUMBAR SPINE WITH AND WITHOUT CONTRAST CLINICAL HISTORY: back pain, ivda COMPARISON STUDY: No previous studies for comparison. TECHNIQUE: Utilizing a 1.5 Cary magnet and dedicated coil, multiplanar, multiecho imaging of the lumbar spine was performed before and after uneventful IV administration of 6 mL of Gadavist. FINDINGS: Alignment of the lumbar spine is anatomic. Vertebral body heights are maintained. There is no marrow edema or marrow placement. No intracanalicular m ass or fluid collection is present. The conus terminates at the upper L1 level. Paravertebral soft tissues are unremarkable. Incidental note is made of small gallstones within the gallbladder. Disc spaces are preserved. L1-2: The central canal and neural foramen are patent. L2-3: The central canal and neural foramen are patent L3-4: The central canal and neural foramen are patent L4-5: The central canal and neural foramen are patent L5-S1: The central canal and neural foramen are patent IMPRESSION: 1. Normal MRI of the lumbar spine. 2. Cholelithiasis. ACT 112: Negative or not required by law. Electronically signed by: Reece Kohler M.D. 07/22/2019 2:41 PM XR chest 2V PA/lateral CLINICAL HISTORY: 28 years-old Female presenting with right thoracic back pain. TECHNIQUE: PA and lateral views of the chest were obtained. COMPARISON: None. FINDINGS: Cardiomediastinal silhouette normal. Lungs and pleural spaces clear. Osseous str uctures normal. Upper abdomen normal. IMPRESSION: 1. No acute cardiopulmonary disease. ACT 112: Negative or not required by law. Electronically signed by: Jose Crawford M.D. 07/22/2019 10:13 AM XR thoracic spine 3V routine CLINICAL HISTORY: right thoracic back pain COMPARISON STUDY: No previous studies for comparison. FINDINGS: No thoracic spine fracture is noted. No osseous lesion is identified by radiography. Patient is mildly rotated. Disc spaces are preserved. IMPRESSION: No thoracic spine fracture or subluxation. ACT 112: Negative or not required by law. Electronically signed by: Reece Kohler M.D. 07/22/2019 10:31 AM ECG Data Attestation: I personally reviewed and interpreted this ECG as follows: Indication: + back/shoulder pain Rate (beats per minute): 92 Rhythm: + sinus rhythm ECG Intervals/blocks: + Normal QRS, + Normal QT and + Normal QT-c ECG [place]: + Normal ECG Findings: + Other (No acute ischemia.); no PACs and no PVCs Prescription Drug Monitoring [place] Drug Monitoring Program reviewed and no issues identified Blood Pressure Blood Pressure Findings: Elevated blood pressure Blood Pressure Disposition: further management by hospitalist RANCHO Narrative Cardiac Monitoring: An order was placed for continuous cardiac monitoring. The monitor shows a rate of 84 with sinus rhythm. Patient here uncomfortable appearing and in distress secondary to pain in her right thoracic back medial to the edge of the scapula. No recent trauma, no recent procedure or injection. Initially started with labs and imaging, and considered referred pain from intrathoracic etiology. Patient given IV Tylenol. PDMP was negative on the patient. Patient remained hemodynamically stable. Patient's x-rays negative, labs reassuring with exception of a markedly elevated white blood cell count. Due to concern for occult infectious etiology, I discussed again with patient her past medical history and patient did finally admit to IV drug abuse. Patient sent for MRI with and without of the thoracic and lumbar spine after discussion with radiology. This took several hours to obtain. Patient found to have an infectious myositis. No evidence of discitis, osteomyelitis, or epidural extension. No evidence of necrotizing pathology. Additional blood cultures drawn and patient started on IV antibiotics after discussion with the ED pharmacist. Procalcitonin reassuring. Discussed all results with patient, discussed need for additional inpatient evaluation and management, she verbalized understanding was in agreement. Case discussed with hospitalist. No evidence at this time of bacteremia/sepsis. No evidence of need for acute surgical intervention. Patient with no acute neurologic symptoms. Impression & Plan Back pain, Leukocytosis, Myositis, IV drug abuse Discharge Plan Visit Data *Final* Discharge Date/Time: 07/22/19 17:34 Chief Complaint: Back Injury/Pain Stated Complaint: BACK PAIN, SOB LAST 3 DAYS ED Provider: Kiana Huerta Discharge Problem: Back pain, Leukocytosis, Myositis, IV drug abuse Patient Disposition: Admitted As Inpatient Discharge Instructions Interventions: ED Discharge Assessment Last Done: 07/22/19 17:34 Discharge Problem: Back pain Qualifiers: Back pain location: thoracic back pain Chronicity: acute Back pain laterality: unspecified Qualified Code(s): M54.6 - Pain in thoracic spine Leukocytosis Qualifiers: Leukocytosis type: unspecified Qualified Code(s): D72.829 - Elevated white blood cell count, unspecified Myositis Qualifiers: Myositis type: unspecified type Myositis location: unspecified site Qualified Code(s): M60.9 - Myositis, unspecified The scribe's documentation has been prepared under my direction and personally reviewed by me in its entirety. I confirm that the note above accurately reflects all work, treatment, procedures, and medical decision making performed by me.
--- NOTE | 2019-07-23 08:17 | Orthopedic Consultation ---
Date of Consultation July 23, 2019 Assessment & Plan (1) Myositis: This time she does appear to have a myositis which most likely is infectious in nature based on her lab studies. Do not see any indication for surgery at this point. Present on Admission?: Yes History of Present Illness Reason for Consultation: Thoracic back pain Attending Physician: Karolina Knowles MD History of Present Illness This is a 20-year-old female that presents with several days of severe upper back pain described as involving the right scapula. Does not radiate down the arm. She denies any lumbar pain. 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 Her grandmother apparently has a broken leg weighs well over 200 pounds and requires significant assistance. This may have contributed to the initiation of a muscle strain. Nevertheless she is exquisitely painful and has been unable to work. Allergies Allergy/AdvReac Type Severity Reaction Status Date / Time No Known Allergies Allergy Unverified 07/22/19 08:35 Home Medications Home Medications Medication Instructions Recorded Confirmed Type ibuprofen 200 mg PO Q6H PRN 07/22/19 07/22/19 History Patient History Medical History (Updated 07/22/19 @ 16:53 by Nathaly Sanchez PA-C) Chiari I malformation Chronic hepatitis C Depression IV drug abuse Tobacco abuse Surgical History (Updated 07/22/19 @ 16:34 by Nathaly Sanchez PA-C) History of tonsillectomy and adenoidectomy Family History (Updated 07/22/19 @ 16:43 by Nathaly Sanchez PA-C) Brother Hepatitis C Mother Hepatitis C Depression Social History (Updated 07/22/19 @ 16:44 by Nathaly Sanchez PA-C) Preferred Language: Swiss Communication Ability: Effective 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 Beliefs That Will Affect Care: None Current Living Situation: Family Current Living Situation Comment: grandmother and girlfriend Other Information That Helps Us Care for You: No Feels Safe at Home: Yes Safety Concerns: Feels Safe At This Time Smoking Status: Current every day smoker Tobacco Type: cigarettes ; Cigarettes Per Day: 1/2 ppd ; Do You Dip or Chew Tobacco: No ; Tobacco Cessation Education Requested by Patient: No Hx Alcohol Use: No Hx Substance Use: Yes substance use type: former substance user Last Used Substance Other:: pt states last use was april Physical Exam Physical Exam: On exam she was able to sit up without difficulty. She is reasonable strength testing. She is exquisitely tender to palpation of the right periscapular region. There is no gross erythema. There is no drainage. Results & Data ([facility]) Vital Signs (Past 12 Hours) Vital Signs Temp Pulse Pulse Resp BP Pulse Ox 07/23/19 07:14 99 H 07/23/19 06:40 36.9 C 88 19 128/84 98 07/23/19 00:37 37.0 C 97 H 19 107/71 98 (1) Myositis Myositis location: unspecified site Myositis type: unspecified type Qualified Code(s): M60.9 - Myositis, unspecified
[2019-07-23] MEDS: NICOTINE 14 MG/24 HR PATCH TD SCH (08:19)
[2019-07-23] MEDS ORDERED: POTASSIUM CHLORIDE 20 MEQ TABCR PO STA (08:46)
[2019-07-23] MEDS: HYDROmorphone INJ 1 MG/ML SYRINGE IV PRN ×4 (09:00→22:03)
--- NOTE | 2019-07-23 10:16 | Hospitalist Progress Note ---
Date of Service July 23, 2019 Assessment & Plan (1) Gram-positive cocci bacteremia: Patient presented with intractable back pain, MRI of thoracic spine: Blood culture shows gram-positive cocci growing in 2 out of 2 bottles Given history of IV drug abuse, positive blood culture, Ordered for transthoracic echo for evaluation of endocarditis, Patient is continue with vancomycin/Zosyn Repeat culture in next 24 hours May need HEBER in future if blood cultures remains persistently positive for gram- positive bacteremia Infectious disease consult requested Marked leukocytosis WBC more than 20,000, Back pain: Possible secondary to Myositis: T-SPINE MRI: 1. Extensive muscle inflammation and abnormal enhancement in the right paraspinal musculature throughout the thoracic region. This is concerning for infectious myositis. 2. No abscess or epidural extension is appreciated. No associated evidence of septic facet arthritis or discitis osteomyelitis. However, there is associated trace right pleural effusion and pleuritis. L-SPINE MRI: 1. Normal MRI of the lumbar spine. 2. Cholelithiasis Appreciate input from spinal orthopedics, no role for surgery, recommend supportive care pain management, antibiotic for infection treatment (2) Back pain: (3) Leukocytosis: (4) Myositis: Pt is 28 y/o F with PMH IV drug abuse, chronic hepatitis C, Chiari malformation, depression presented to ER with complaint of right upper back pain x 3 days. Complains of sharp pain over right scapular region which has increased over the past 3 days. Denies any radiation of pain or extremity pain. Denies fever/chills. In ER afebrile, P: 97, R: 20, BP: 118/74, 98% on RA. WBC: 24, H/H: 12/35. Pt difficult venous access, no lactate drawn . Possible Infectious myositis paraspinous musculature No sign of abscess, discitis or osteomyelitis on MRI spine -In ER given Zosyn, vancomycin, 1L NSS, Toradol, IV Tylenol, Zofran -Blood cultures pending -ESR, CRP pending -Zosyn, vancomycin -IVF -CBC, BMP in am -If would develop other signs of abscess or worsening consider surgery consult (5) IV drug abuse: H/O IV Heroin, IV Suboxone use. Reports last used 04/2019 -Urine tox screen pending (6) Hypokalemia: K: 3.3 -replace and monitor (7) Chronic hepatitis C: Not treated; Was following with sales and marketing professional in 2019 and was to have treatment however never followed up. LFTs WNL (8) Tobacco abuse: -Smoking cessation recommended -Nicotine patch DVT Prophylaxis -Low risk, ambulate Full Code Does not Follows with PCP for routine care Pt was seen and care coordinated with Dr Blanton. See addendum Admission and Anticipated Discharge Date Admission Date: July 22, 2019 Subjective Patient complains of intractable back pain Morphine and tramadol not helping, Received Dilaudid in the ER, which only helped to give her relief of pain symptoms No fever or chills, denies of any chest pain Patient denies of recent use of IV drug Review of Systems Review of Systems: All systems reviewed & are unremarkable except as noted in HPI & below Musculoskeletal: + back pain Physical Exam 2 Constitutional: + ill appearing Eyes: + anicteric sclerae ENMT: external ear and nose normal, oropharynx normal Neck: trachea midline, no thyromegaly Respiratory: normal respiratory effort, lungs clear to auscultation Cardiovascular: RRR, no murmur, no edema Gastrointestinal (Abdomen): Percussion/Palpation: abdomen soft; abdomen nontender Musculoskeletal: Spine: + limited thoraco-lumbar ROM (due to back pain ) Neurologic: PERRL, EOMI, accommodation nl, no face palsy, no dysarthria Psychiatric: A+Ox3, euthymic affect Results & Data ([facility]) Vital Signs (Past 12 Hours) Vital Signs Temp Pulse Pulse Resp BP Pulse Ox 07/23/19 07:14 99 H 07/23/19 06:40 36.9 C 88 19 128/84 98 07/23/19 00:37 37.0 C 97 H 19 107/71 98 (1) Back pain Back pain laterality: unspecified Back pain location: thoracic back pain Chronicity: acute Qualified Code(s): M54.6 - Pain in thoracic spine (2) Leukocytosis Leukocytosis type: unspecified Qualified Code(s): D72.829 - Elevated white blood cell count, unspecified (3) Myositis Myositis location: unspecified site Myositis type: unspecified type Qualified Code(s): M60.9 - Myositis, unspecified
[2019-07-23] MEDS: NSS + 20MEQ KCL 20 MEQ/1,000 ML BAG IV SCH ×2 (11:09→19:07)
[2019-07-24] MEDS ORDERED: HYDROmorphone INJ 0.5 MG/0.5 ML SYR IV STA (00:24)
[2019-07-24] MEDS: NSS + 20MEQ KCL 20 MEQ/1,000 ML BAG IV SCH ×2 (02:13→13:09)
[2019-07-24] MEDS: PIPERACILLIN/TAZOBACTAM 3.375 GM in DEXTROSE 5% 100 ML IV SCH (05:23)
[2019-07-24] MEDS: KETOROLAC TROMETHAMINE 15 MG/ML VIAL IV PRN ×2 (05:24→12:33)
[2019-07-24 06:11] LABS: Hematocrit (blood only) 30.9 % (37-47); Hemoglobin 10.4 g/dL (12.0-16.0); Mean Corpuscular Hemoglobin 31.7 pg (25-34); Mean Corpuscular Hgb Conc 33.7 g/dL (32-36); Mean Corpuscular Volume 94.2 fL (80-100); Platelet Count 316 K/uL (130-400); RDW Standard Deviation 44.7 fL (36.4-46.3); Red Blood Count 3.28 M/uL (4.2-5.4)
[2019-07-24 06:35] LABS: Basophils # (auto) 0.04 K/uL (0-0.2); Basophils % (auto) 0.1 %; Eosinophils # (auto) 0.31 K/uL (0-0.5); Eosinophils % (auto) 1.2 %; Immature Granulocytes # (auto) 0.12 K/uL (0.00-0.02); Immature Granulocytes % (auto) 0.4 %; Lymphocytes # (auto) 3.49 K/uL (1.2-3.4); Monocytes # (auto) 2.45 K/uL (0.11-0.59); Monocytes % (auto) 9.1 %; Neutrophils # (auto) 20.39 K/uL (1.4-6.5); Neutrophils % (auto) 76.2 %
[2019-07-24 06:41] LABS: Alanine Aminotransferase 15 U/L (12-78); Albumin Level 2.2 gm/dl (3.4-5.0); Aspartate Aminotransferase 5 U/L (15-37); BUN Creatinine Ratio 9.8 (10-20); Blood Urea Nitrogen 4 mg/dl (7-18); Calcium 8.1 mg/dl (8.5-10.1); Carbon Dioxide 25 mmol/L (21-32); Chloride 113 mmol/L (98-107); Creatinine Clr Calc Pharmacy 196.4 ml/min; Est GFR (African American) > 150.0; Est GFR (Non-African American) 141.7; Glucose 107 mg/dl (70-99); Potassium 3.7 mmol/L (3.5-5.1); Sodium 141 mmol/L (136-145)
[2019-07-24 06:45] LABS: Albumin Globulin Ratio 0.6 (0.9-2); Alkaline Phosphatase 89 U/L (45-117); Bilirubin,Total 0.3 mg/dl (0.2-1); Globulin 3.4 gm/dl (2.5-4.0); Total Protein 5.6 gm/dl (6.4-8.2)
[2019-07-24] MEDS: HYDROmorphone INJ 1 MG/ML SYRINGE IV PRN ×5 (07:25→23:43)
[2019-07-24] MEDS ORDERED: VANCOMYCIN TROUGH ONE (07:30)
[2019-07-24] MEDS: NICOTINE 14 MG/24 HR PATCH TD SCH (08:05)
[2019-07-24] MEDS: VANCOMYCIN HCL 1,000 MG in SODIUM CHLORIDE 0.9% 250 ML IV SCH (08:05)
--- NOTE | 2019-07-24 09:40 | Pharmacy Report ---
Pharmacy Abx Dose Progress Nt - Date of Service July 24, 2019 - Pharmacy Dosing Scope The patient was receiving the following antimicrobial agents per Pharmacy consult: Vancomycin 1000 mg IV every 8 hours - Objective Vital Signs (Past 12hrs): Vital Signs Temp Pulse Pulse Resp BP Pulse Ox 07/24/19 07:40 36.6 C 84 18 119/81 98 07/24/19 03:03 36.6 C 81 18 107/69 97 07/24/19 02:23 92 H 07/23/19 22:19 37.5 C 90 20 128/87 99 Lab Results (24hrs): Laboratory Tests (24 Hours) 07/24/19 07/24/19 07/24/19 07:37 05:52 05:52 WBC 26.80 H Neut # (Auto) 20.39 H Creatinine 0.40 L Est Cr Clr Drug Dosing 196.4 Vancomycin Trough 7.8 Micro Results: 07/22/19 16:16 Anaerobic Blood Culture - Final Blood Microbiology 07/22/19 16:16 Blood Anaerobic Blood Culture - Final 07/22/19 19:30 Urine,Clean Catch Urine Culture - Preliminary Escherichia coli 07/22/19 16:16 Blood Aerobic Blood Culture - Preliminary 07/22/19 16:16 Blood Staphylococcus aureus 07/22/19 15:54 Blood Aerobic Blood Culture - Preliminary 07/22/19 15:54 Blood Anaerobic Blood Culture - Preliminary Gram positive cocci clusters Staphylococcus aureus - Risk Factors for Resistance * History of and current IV drug abuse. - Assessment & Plan Assessment 28 year old F receiving Vancomycin for treatment of infectious myositis. Currently blood cultures x2 positive with staph aureus most likely MRSA. Patient with history of IV drug abuse and chronic hepatitis C. Urine culture positive for E coli- resistant to Ampicillin, Gentamicin and Bactrim but sensitive to Zosyn, Rocephin. Day #2 of antimicrobial therapy- Vancomycin + Zosyn. A Vanc trough level was drawn today after 4 maintenance Vanc doses and is steady state. Plan Vancomycin IV * Patient was receiving Vancomycin 1000 mg IV q8h. * Trough level of 7.8 mcg/mL drawn today is subtherapeutic. * T1/2 = 3.7 hrs, Ke = 0.187/hr * Vancomycin changed to 1250 mg IV every 6 hours * Goal trough level for Bacteremia in this patient: 15 to 20 mcg/mL * Trough Vanc level ordered for: 07/25/19 before dose at 1400. This should be after 4 doses of new Vancomycin dosing regimen. Pharmacy will continue to follow and will adjust dose/frequency as necessary. Thank you.
[2019-07-24] MEDS: cefTRIAXone SODIUM 1,000 MG in DEXTROSE 5% 50 ML IV SCH (12:15)
--- NOTE | 2019-07-24 13:01 | Infectious Disease Consult ---
Date of Consultation July 24, 2019 Assessment & Plan (1) Gram positive sepsis: continue current abx, will need repeat blood cultures until negative, await final sensitivities. echo negative. will likely need prolonged course of abx. she is not a cadidate for picc line due to ongoing drug use. would suggest testing and HIV testing if not already offered. I will be away until 08/02, if ongoing ID concerns, would suggest transfer. (2) Myositis: (3) Chronic hepatitis C: (4) IV drug abuse: History of Present Illness Attending Physician: Karolina Knowles MD pt admitted to hospital with back pain, 3-[address] showed myositis. blood cultres growing s. aureus, final pending. growing in all bottles. no repeat done. echo negative. on vanco and ctx, tolerating well. family at bedside, complaining of ongoing back pain, asking for stronger pain meds. afebrile. wbc 27 in ER, 26 today. ESR elevated. creat 0.5. UA 10-30 wbc, + 2 bacteria, culture growing E. coli, no gu symptoms reported on my exam. denies fevers but admits to sweats and chills. CXR negative. UDS +, no osteo noted. 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 Beliefs That Will Affect Care: None Current Living Situation: Family Current Living Situation Comment: grandmother and girlfriend Other Information That Helps Us Care for You: No Feels Safe at Home: Yes Safety Concerns: Feels Safe At This Time Smoking Status: Current every day smoker Tobacco Type: cigarettes ; Cigarettes Per Day: 1/2 ppd ; Do You Dip or Chew Tobacco: No ; Tobacco Cessation Education Requested by Patient: No Hx Alcohol Use: No Hx Substance Use: Yes substance use type: former substance user Last Used Substance Other:: pt states last use was april Review of Systems Review of Systems: All systems reviewed & are unremarkable except as noted in HPI & below Physical Exam Constitutional: WD/WN, vitals as above Eyes: PERRL, conjunctivae normal, anicteric sclerae ENMT: external ear and nose normal, oropharynx normal Neck: normal visual inspection Respiratory: normal respiratory effort, lungs clear to auscultation Cardiovascular: RRR, no murmur, no edema Gastrointestinal (Abdomen): normal bowel sounds, soft, nontender, no hepatosplenomegaly Musculoskeletal: no cyanosis or clubbing, extremities motor strength 5/5 Skin: no rashes, warm and dry Psychiatric: A+Ox3, euthymic affect Results & Data ([facility]) Vital Signs (Past 12 Hours) Vital Signs Temp Pulse Pulse Resp BP Pulse Ox 07/24/19 11:13 36.9 C 89 18 117/79 99 07/24/19 07:40 36.6 C 84 18 119/81 98 07/24/19 03:03 36.6 C 81 18 107/69 97 07/24/19 02:23 92 H Laboratory Results Microbiology 07/22/19 15:54 Blood Aerobic Blood Culture - Preliminary Staphylococcus aureus 07/22/19 15:54 Blood Anaerobic Blood Culture - Preliminary Staphylococcus aureus 07/22/19 19:30 Urine,Clean Catch Urine Culture - Final Escherichia coli 07/22/19 16:16 Blood Aerobic Blood Culture - Preliminary Staphylococcus aureus 07/22/19 16:16 Blood Anaerobic Blood Culture - Final PG Care Time/CCT Total # of Minutes Spent Total Time Spent with Patient: Total time spent is greater than 50% in coordination of care (as documented) at patient's floor/unit and/or counseling patient: Coding Level of Care Code 75151 Inpt Consult Level 4 Diagnoses Gram positive sepsis A41.89 Myositis M60.9 Myositis location: unspecified site Myositis type: unspecified type Chronic hepatitis C B18.2 IV drug abuse F19.10 (1) Myositis Myositis location: unspecified site Myositis type: unspecified type Qualified Code(s): M60.9 - Myositis, unspecified
[2019-07-24] MEDS: VANCOMYCIN HCL 1,250 MG in SODIUM CHLORIDE 0.9% 250 ML IV SCH ×2 (13:58→19:38)
[2019-07-24] MEDS ORDERED: VANCOMYCIN HCL 1,250 MG in SODIUM CHLORIDE 0.9% 250 ML IV SCH (14:00)
--- NOTE | 2019-07-24 16:11 | Hospitalist Progress Note ---
Date of Service July 24, 2019 Assessment & Plan (1) Gram-positive cocci bacteremia: Patient presented with intractable back pain, MRI of thoracic spine: Blood culture shows gram-positive cocci growing in 2 out of 2 bottles-MRSA transthoracic echo shows no valvular vegetation on vancomycin appreciate input from ID UTI : urine culture e .coli Abx changed to IV rocephin per sensitivity Marked leukocytosis WBC more than 20,000,-due to above cont broad sperctrum ABx repeat blood cultures ordered Back pain: Possible secondary to Myositis: T-SPINE MRI: 1. Extensive muscle inflammation and abnormal enhancement in the right pa raspinal musculature throughout the thoracic region. This is concerning for infectious myositis. 2. No abscess or epidural extension is appreciated. No associated evidence of septic facet arthritis or discitis osteomyelitis. However, there is associated trace right pleural effusion and pleuritis. L-SPINE MRI: 1. Normal MRI of the lumbar spine. 2. Cholelithiasis Appreciate input from spinal orthopedics, no role for surgery, recommend supportive care pain management, antibiotic for infection treatment (2) Back pain: (3) Leukocytosis: (4) Myositis: . Possible Infectious myositis paraspinous musculature No sign of abscess, discitis or osteomyelitis on MRI spine cont abx as outlined above (5) IV drug abuse: H/O IV Heroin, IV Suboxone use. Reports last used 04/2019 -Urine tox screen + (6) Hypokalemia: K: 3.3 -replaced and monitor (7) Chronic hepatitis C: Not treated; Was following with chief medical physicist in 2019 and was to have treatment however never followed up. LFTs WNL (8) Tobacco abuse: -Smoking cessation recommended -Nicotine patch DVT Prophylaxis -Low risk, ambulate Full Code Admission and Anticipated Discharge Date Admission Date: July 22, 2019 Subjective feels very weak and fatigued complains of intractable back pain afebrile vitals stable Review of Systems Musculoskeletal: + back pain Physical Exam Constitutional: + ill appearing Eyes: + anicteric sclerae ENMT: external ear and nose normal, oropharynx normal Neck: trachea midline, no thyromegaly Respiratory: normal respiratory effort, lungs clear to auscultation Cardiovascular: RRR, no murmur, no edema Gastrointestinal (Abdomen): Percussion/Palpation: abdomen soft; abdomen nontender Musculoskeletal: Spine: + limited thoraco-lumbar ROM (due to back pain ) Neurologic: PERRL, EOMI, accommodation nl, no face palsy, no dysarthria Psychiatric: A+Ox3, euthymic affect Results & Data ([facility]) Vital Signs (Past 12 Hours) Vital Signs Temp Pulse Resp BP Pulse Ox 07/24/19 15:06 36.9 C 92 H 20 122/82 100 07/24/19 11:13 36.9 C 89 18 117/79 99 07/24/19 07:40 36.6 C 84 18 119/81 98 (1) Back pain Back pain laterality: unspecified Back pain location: thoracic back pain Chronicity: acute Qualified Code(s): M54.6 - Pain in thoracic spine (2) Leukocytosis Leukocytosis type: unspecified Qualified Code(s): D72.829 - Elevated white blood cell count, unspecified (3) Myositis Myositis location: unspecified site Myositis type: unspecified type Qualified Code(s): M60.9 - Myositis, unspecified
[2019-07-24] MEDS: ACETAMINOPHEN 325 MG TAB PO PRN ×2 (17:13→21:09)
[2019-07-24] MEDS: OXYCODONE HCL IR 5 MG TAB (IMMEDIATE RELEASE) PO PRN ×2 (17:14→23:25)
[2019-07-24] MEDS: POLYETHYLENE (MIRALAX) 17 GM PACK PO SCH (19:41)
[2019-07-25] MEDS: VANCOMYCIN HCL 1,250 MG in SODIUM CHLORIDE 0.9% 250 ML IV SCH ×2 (01:30→08:24)
[2019-07-25] MEDS: NSS + 20MEQ KCL 20 MEQ/1,000 ML BAG IV SCH ×3 (01:31→14:33)
[2019-07-25] MEDS: HYDROmorphone INJ 1 MG/ML SYRINGE IV PRN ×4 (03:29→19:48)
[2019-07-25] MEDS: OXYCODONE HCL IR 5 MG TAB (IMMEDIATE RELEASE) PO PRN (05:30)
[2019-07-25] MEDS ORDERED: HYDROmorphone INJ 0.5 MG/0.5 ML SYR IV STA (06:34)
[2019-07-25] MEDS: POLYETHYLENE (MIRALAX) 17 GM PACK PO SCH ×2 (08:25→21:08)
[2019-07-25 08:54] LABS: Basophils # (auto) 0.05 K/uL (0-0.2); Basophils % (auto) 0.2 %; Eosinophils # (auto) 0.26 K/uL (0-0.5); Eosinophils % (auto) 1.2 %; Hematocrit (blood only) 31.5 % (37-47); Hemoglobin 10.5 g/dL (12.0-16.0); Immature Granulocytes # (auto) 0.11 K/uL (0.00-0.02); Immature Granulocytes % (auto) 0.5 %; Lymphocytes # (auto) 2.75 K/uL (1.2-3.4); Lymphocytes % (auto) 12.9 %; Mean Corpuscular Hemoglobin 31.2 pg (25-34); Mean Corpuscular Hgb Conc 33.3 g/dL (32-36); Mean Corpuscular Volume 93.5 fL (80-100); Mean Platelet Volume 10.1 fL (7.4-10.4); Monocytes # (auto) 2.11 K/uL (0.11-0.59); Monocytes % (auto) 9.9 %; Neutrophils # (auto) 16.04 K/uL (1.4-6.5); Neutrophils % (auto) 75.3 %; Platelet Count 393 K/uL (130-400); RDW Coefficient of Variation 13.1 % (11.5-14.5); RDW Standard Deviation 45.1 fL (36.4-46.3); Red Blood Count 3.37 M/uL (4.2-5.4); White Blood Count 21.32 K/uL (4.8-10.8)
[2019-07-25 09:23] LABS: Albumin Level 2.4 gm/dl (3.4-5.0); Aspartate Aminotransferase 7 U/L (15-37); BUN Creatinine Ratio 5.3 (10-20); Blood Urea Nitrogen 2 mg/dl (7-18); Calcium 8.5 mg/dl (8.5-10.1); Carbon Dioxide 25 mmol/L (21-32); Chloride 106 mmol/L (98-107); Creatinine Clr Calc Pharmacy 191.3 ml/min; Est GFR (African American) > 150.0; Est GFR (Non-African American) 139.5; Glucose 94 mg/dl (70-99); Potassium 3.5 mmol/L (3.5-5.1); Sodium 136 mmol/L (136-145)
[2019-07-25 09:26] LABS: Alanine Aminotransferase 14 U/L (12-78); Albumin Globulin Ratio 0.6 (0.9-2); Alkaline Phosphatase 88 U/L (45-117); Bilirubin,Total 0.4 mg/dl (0.2-1); Globulin 4.2 gm/dl (2.5-4.0); Total Protein 6.6 gm/dl (6.4-8.2)
[2019-07-25] MEDS: NICOTINE 14 MG/24 HR PATCH TD SCH (09:41)
[2019-07-25] MEDS ORDERED: KETOROLAC 30 MG/ML VIAL IV ONE (09:43)
[2019-07-25] MEDS ORDERED: LORazepam 0.5 MG/1 ML VIAL IV PRN (09:45)
[2019-07-25] MEDS ORDERED: KETOROLAC 30 MG/ML VIAL ONE (09:48)
[2019-07-25] MEDS: cefTRIAXone SODIUM 1,000 MG in DEXTROSE 5% 50 ML IV SCH (11:24)
[2019-07-25] MEDS ORDERED: VANCOMYCIN TROUGH ONE (13:30)
[2019-07-25] MEDS: DAPTOmycin 550 MG in SYRINGE 0 ML IV SCH (13:32)
[2019-07-25] MEDS: LORazepam 0.5 MG/1 ML VIAL IV PRN (16:12)
[2019-07-25] MEDS: KETOROLAC 30 MG/ML VIAL IV PRN ×2 (17:36→23:22)
--- NOTE | 2019-07-25 18:05 | Hospitalist Progress Note ---
Date of Service July 25, 2019 Assessment & Plan (1) Gram-positive cocci bacteremia: Patient presented with intractable back pain, MRI of thoracic spine: Blood culture: MRSA, Antibiotic changed to daptomycin transthoracic echo shows no valvular vegetation appreciate input from ID UTI : urine culture e .coli Abx changed to IV r Rocephin per sensitivity Marked leukocytosis Admission WBC more than 20,000,-due to above White cell count improving gradually Continue daptomycin/Rocephin Follow repeat blood culture Back pain: Possible secondary to Myositis: T-SPINE MRI: 1. Extensive muscle inflammation and abnormal enhancement in the right paraspinal musculature throughout the thoracic region. This is concerning for infectious myositis. 2. No abscess or epidural extension is appreciated. No associated evidence of septic facet arthritis or discitis osteomyelitis. However, there is associated trace right pleural effusion and pleuritis. L-SPINE MRI: 1. Normal MRI of the lumbar spine. 2. Cholelithiasis Appreciate input from spinal orthopedics, no role for surgery, recommend supportive care pain management, antibiotic for infection treatment (2) Back pain: (3) Leukocytosis: (4) Myositis: . Possible Infectious myositis paraspinous musculature No sign of abscess, discitis or osteomyelitis on MRI spine cont abx as outlined above (5) IV drug abuse: H/O IV Heroin, IV Suboxone use. Reports last used 04/2019 -Urine tox screen + (6) Hypokalemia: K: 3.3 -replaced and monitor (7) Chronic hepatitis C: Not treated; Was following with hook and eye sewing machine operator in 2019 and was to have treatment however never followed up. LFTs WNL (8) Tobacco abuse: -Smoking cessation recommended -Nicotine patch DVT Prophylaxis -Low risk, ambulate Full Code Admission and Anticipated Discharge Date Admission Date: July 22, 2019 Subjective Continues to complain of intractable back pain, very tearful Requesting for Toradol as it helped her with her right-sided back pain in the past No fever or chills no cough no shortness of breath or chest pain Review of Systems Musculoskeletal: + back pain Psychiatric: + anxiety (Very tearful) Physical Exam Constitutional: + ill appearing Eyes: + anicteric sclerae ENMT: external ear and nose normal, oropharynx normal Neck: trachea midline, no thyromegaly Respiratory: normal respiratory effort, lungs clear to auscultation Cardiovascular: RRR, no murmur, no edema Gastrointestinal (Abdomen): Percussion/Palpation: abdomen soft; abdomen nontender Musculoskeletal: Spine: + limited thoraco-lumbar ROM (due to back pain ) Neurologic: PERRL, EOMI, accommodation nl, no face palsy, no dysarthria Psychiatric: A+Ox3, euthymic affect Results & Data ([facility]) Vital Signs (Past 12 Hours) Vital Signs Temp Pulse Resp BP Pulse Ox 07/25/19 08:30 37.3 C 95 H 20 120/81 98 (1) Back pain Back pain laterality: unspecified Back pain location: thoracic back pain Chronicity: acute Qualified Code(s): M54.6 - Pain in thoracic spine (2) Leukocytosis Leukocytosis type: unspecified Qualified Code(s): D72.829 - Elevated white blood cell count, unspecified (3) Myositis Myositis location: unspecified site Myositis type: unspecified type Qualified Code(s): M60.9 - Myositis, unspecified
[2019-07-26] MEDS: HYDROmorphone INJ 1 MG/ML SYRINGE IV PRN ×4 (03:14→21:39)
[2019-07-26] MEDS: NSS + 20MEQ KCL 20 MEQ/1,000 ML BAG IV SCH ×2 (04:44→10:57)
[2019-07-26] MEDS: KETOROLAC 30 MG/ML VIAL IV PRN ×2 (06:04→17:04)
[2019-07-26] MEDS ORDERED: COUGH DROP (SUGAR FREE) LOZ 24 LOZ/1 BOX BUCCAL PRN (06:09)
[2019-07-26 07:48] LABS: Basophils # (auto) 0.03 K/uL (0-0.2); Basophils % (auto) 0.2 %; Eosinophils # (auto) 0.57 K/uL (0-0.5); Eosinophils % (auto) 3.6 %; Hematocrit (blood only) 29.7 % (37-47); Hemoglobin 9.8 g/dL (12.0-16.0); Immature Granulocytes # (auto) 0.08 K/uL (0.00-0.02); Immature Granulocytes % (auto) 0.5 %; Lymphocytes % (auto) 17.6 %; Mean Corpuscular Hemoglobin 31.2 pg (25-34); Mean Corpuscular Volume 94.6 fL (80-100); Mean Platelet Volume 9.7 fL (7.4-10.4); Monocytes # (auto) 1.99 K/uL (0.11-0.59); Monocytes % (auto) 12.5 %; Neutrophils # (auto) 10.42 K/uL (1.4-6.5); Neutrophils % (auto) 65.6 %; Platelet Count 374 K/uL (130-400); RDW Coefficient of Variation 13.2 % (11.5-14.5); RDW Standard Deviation 45.7 fL (36.4-46.3); Red Blood Count 3.14 M/uL (4.2-5.4); White Blood Count 15.89 K/uL (4.8-10.8)
[2019-07-26] MEDS: NICOTINE 14 MG/24 HR PATCH TD SCH (08:34)
[2019-07-26] MEDS: POLYETHYLENE (MIRALAX) 17 GM PACK PO SCH (08:37)
[2019-07-26] MEDS: LORazepam 0.5 MG/1 ML VIAL IV PRN (09:50)
[2019-07-26] MEDS: cefTRIAXone SODIUM 1,000 MG in DEXTROSE 5% 50 ML IV SCH (11:46)
[2019-07-26] MEDS: DAPTOmycin 550 MG in SYRINGE 0 ML IV SCH (11:47)
--- NOTE | 2019-07-26 14:16 | Hospitalist Progress Note ---
Date of Service July 26, 2019 Assessment & Plan (1) Gram-positive cocci bacteremia: Patient presented with intractable back pain,-tone has improved today MRI of thoracic spine: Blood culture: MRSA, Antibiotic changed to daptomycin-per sensitivity transthoracic echo shows no valvular vegetation appreciate input from ID UTI : urine culture e .coli Abx changed to IV r Rocephin per sensitivity Marked leukocytosis Due to gram-positive bacteremia/MRSA . With white count of 26,000, White cell count improving gradually-improved to 15,000 today Continue daptomycin/Rocephin With blood cultures negative growth Back pain: Possible secondary to Myositis: T-SPINE MRI: 1. Extensive muscle inflammation and abnormal enhancement in the right paraspinal musculature throughout the thoracic region. This is concerning for infectious myositis. 2. No abscess or epidural extension is appreciated. No associated evidence of septic facet arthritis or discitis osteomyelitis. However, there is associated trace right pleural effusion and pleuritis. L-SPINE MRI: 1. Normal MRI of the lumbar spine. 2. Cholelithiasis Appreciate input from spinal orthopedics, no role for surgery, recommend supportive care pain management, antibiotic for infection treatment Patient reports of back pain has continues to improve, Encouraged to be out of bed as tolerated (2) Back pain: Due to above, management as outlined (3) Leukocytosis: Leukocytosis continues to improve with antibiotic treatment (4) Myositis: . Possible Infectious myositis paraspinous musculature No sign of abscess, discitis or osteomyelitis on MRI spine cont abx as outlined above (5) IV drug abuse: H/O IV Heroin, IV Suboxone use. Reports last used 04/2019 -Urine tox screen + Counseling provided abstinence from drug abuse- (6) Hypokalemia: K: 3.3 -replaced and monitor (7) Chronic hepatitis C: Not treated; Was following with washhouse hand in 2019 and was to have treatment however never followed up. LFTs WNL (8) Tobacco abuse: -Smoking cessation recommended -Nicotine patch DVT Prophylaxis -Low risk, ambulate Full Code Admission and Anticipated Discharge Date Admission Date: July 22, 2019 Subjective Sitting on chair, back pain has much improved States Toradol helps with the pain better than Dilaudid No fever or chills complains of nonproductive cough worse at night No abdominal pain, no nausea vomiting, no diarrhea Review of Systems Musculoskeletal: + back pain Physical Exam Constitutional: + ill appearing Eyes: + anicteric sclerae ENMT: external ear and nose normal, oropharynx normal Neck: trachea midline, no thyromegaly Respiratory: normal respiratory effort, lungs clear to auscultation Cardiovascular: RRR, no murmur, no edema Gastrointestinal (Abdomen): Percussion/Palpation: abdomen soft; abdomen nontender Musculoskeletal: Spine: + limited thoraco-lumbar ROM (due to back pain ) Neurologic: PERRL, EOMI, accommodation nl, no face palsy, no dysarthria Psychiatric: A+Ox3, euthymic affect Results & Data ([facility]) Vital Signs (Past 12 Hours) Vital Signs Temp Pulse Pulse Resp BP Pulse Ox 07/26/19 11:57 36.5 C 105 H 16 114/78 98 07/26/19 08:00 36.8 C 85 16 121/70 98 07/26/19 07:01 97 H 07/26/19 04:08 36.6 C 96 H 18 112/67 98 (1) Back pain Back pain laterality: unspecified Back pain location: thoracic back pain Chronicity: acute Qualified Code(s): M54.6 - Pain in thoracic spine (2) Leukocytosis Leukocytosis type: unspecified Qualified Code(s): D72.829 - Elevated white blood cell count, unspecified (3) Myositis Myositis location: unspecified site Myositis type: unspecified type Qualified Code(s): M60.9 - Myositis, unspecified
[2019-07-26] MEDS ORDERED: MoRPHine SULFATE 2 MG/ML CARP IV STA (17:40)
[2019-07-26] MEDS ORDERED: GUAIFENESIN/DEXTROM SYRUP 200MG/20MG 10ML UDC PO PRN (18:37)
[2019-07-26] MEDS ORDERED: FUROSEMIDE 20 MG in SYRINGE 0 ML IV ONE (18:37)
[2019-07-26] MEDS ORDERED: POLYETHYLENE (MIRALAX) 17 GM PACK PO PRN (18:38)
[2019-07-26] MEDS: LACTOBACILLUS ACIDOPHILUS (FLORANEX) TAB PO SCH ×2 (19:58→21:32)
[2019-07-27] MEDS: KETOROLAC 30 MG/ML VIAL IV PRN ×4 (00:56→21:10)
[2019-07-27] MEDS: HYDROmorphone INJ 1 MG/ML SYRINGE IV PRN ×3 (05:28→19:12)
[2019-07-27 08:39] LABS: Basophils # (auto) 0.04 K/uL (0-0.2); Basophils % (auto) 0.3 %; Eosinophils # (auto) 0.63 K/uL (0-0.5); Hematocrit (blood only) 31.4 % (37-47); Hemoglobin 10.3 g/dL (12.0-16.0); Immature Granulocytes # (auto) 0.06 K/uL (0.00-0.02); Immature Granulocytes % (auto) 0.5 %; Lymphocytes # (auto) 3.72 K/uL (1.2-3.4); Lymphocytes % (auto) 29.7 %; Mean Corpuscular Hemoglobin 30.8 pg (25-34); Mean Corpuscular Hgb Conc 32.8 g/dL (32-36); Mean Platelet Volume 9.7 fL (7.4-10.4); Monocytes # (auto) 1.44 K/uL (0.11-0.59); Monocytes % (auto) 11.5 %; Neutrophils # (auto) 6.63 K/uL (1.4-6.5); Platelet Count 421 K/uL (130-400); RDW Coefficient of Variation 13.1 % (11.5-14.5); RDW Standard Deviation 44.8 fL (36.4-46.3); Red Blood Count 3.34 M/uL (4.2-5.4); White Blood Count 12.52 K/uL (4.8-10.8)
[2019-07-27] MEDS: LACTOBACILLUS ACIDOPHILUS (FLORANEX) TAB PO SCH ×4 (08:40→21:10)
[2019-07-27] MEDS: NICOTINE 14 MG/24 HR PATCH TD SCH (08:41)
[2019-07-27 10:45] LABS: Codeine Urine NEGATIVE ng/mL (<50); Hydrocodone Urine NEGATIVE ng/mL (<50); Hydromor Urine 1350 ng/mL (<50); MDA negative; MDEA negative; MDMA (Ecstasy) Urine, Confirm negative; Morphine Urine NEGATIVE ng/mL (<50); Norhydrocodone Conf Ur NEGATIVE ng/mL (<50); Noroxycodone Urine 911 ng/mL (<50); Oxycodone Urine 703 ng/mL (<50); Oxymorph Urine NEGATIVE ng/mL (<50)
[2019-07-27] MEDS: cefTRIAXone SODIUM 1,000 MG in DEXTROSE 5% 50 ML IV SCH (12:05)
[2019-07-27] MEDS: DAPTOmycin 550 MG in SYRINGE 0 ML IV SCH (12:47)
--- NOTE | 2019-07-27 15:28 | Hospitalist Progress Note ---
Date of Service July 27, 2019 Assessment & Plan (1) Gram-positive cocci bacteremia: Patient presented with intractable back pain,-tone has improved today MRI of thoracic spine: Blood culture: MRSA, Antibiotic changed to daptomycin-per sensitivity Repeat blood culture no growth: transthoracic echo shows no valvular vegetation appreciate input from ID Patient will likely need prolonged course of abx 4-6 weeks Patient is not a cadidate for picc line due to ongoing drug use. UTI : urine culture e .coli Was treated with IV Rocephin and Change to p.o. ciprofloxacin total 5 days of treatment Marked leukocytosis Due to gram-positive bacteremia/MRSA . WBC/leukocytosis continues to improve On IV daptomycin Blood cultures no growth Back pain: Possible secondary to Myositis: T-SPINE MRI: 1. Extensive muscle inflammation and abnormal enhancement in the right paraspinal musculature throughout the thoracic region. This is concerning for infectious myositis. 2. No abscess or epidural extension is appreciated. No associated evidence of septic facet arthritis or discitis osteomyelitis. However, there is associated trace right pleural effusion and pleuritis. L-SPINE MRI: 1. Normal MRI of the lumbar spine. 2. Cholelithiasis Appreciate input from spinal orthopedics, no role for surgery, recommend supportive care pain management, antibiotic for infection treatment Patient reports of back pain has continues to improve, Encouraged to be out of bed as tolerated (2) Back pain: Due to above, management as outlined (3) Leukocytosis: Leukocytosis continues to improve with antibiotic treatment (4) Myositis: . Possible Infectious myositis paraspinous musculature No sign of abscess, discitis or osteomyelitis on MRI spine cont abx as outlined above (5) IV drug abuse: H/O IV Heroin, IV Suboxone use. Reports last used 04/2019 -Urine tox screen + Counseling provided abstinence from drug abuse- (6) Hypokalemia: K: 3.3 -replaced and monitor (7) Chronic hepatitis C: Not treated; Was following with booster station operator in 2019 and was to have treatment however never followed up. LFTs WNL (8) Tobacco abuse: -Smoking cessation recommended -Nicotine patch DVT Prophylaxis -Low risk, ambulate Full Code Admission and Anticipated Discharge Date Admission Date: July 22, 2019 Subjective Back pain has significantly improved, Patient reports no complaint of pain or discomfort at rest, minimum pain with transfers and change of position No cough, no shortness of breath No fever or chills Review of Systems Review of Systems: All systems reviewed & are unremarkable except as noted in HPI & below Constitutional: no fever and no chills Musculoskeletal: + back pain (Improved) Physical Exam Constitutional: WD/WN, vitals as above + thin Eyes: PERRL, conjunctivae normal, anicteric sclerae ENMT: external ear and nose normal, oropharynx normal Neck: trachea midline, no thyromegaly Respiratory: normal respiratory effort, lungs clear to auscultation Cardiovascular: RRR, no murmur, no edema Gastrointestinal (Abdomen): normal bowel sounds, soft, nontender, no h epatosplenomegaly Neurologic: PERRL, EOMI, accommodation nl, no face palsy, no dysarthria Psychiatric: A+Ox3, euthymic affect Results & Data ([facility]) Vital Signs (Past 12 Hours) Vital Signs Temp Pulse Resp BP BP Pulse Ox 07/27/19 15:05 36.6 C 87 18 94/43 L 97 07/27/19 12:46 106/72 07/27/19 07:10 36.6 C 90 18 116/75 97 (1) Back pain Back pain laterality: unspecified Back pain location: thoracic back pain Chronicity: acute Qualified Code(s): M54.6 - Pain in thoracic spine (2) Leukocytosis Leukocytosis type: unspecified Qualified Code(s): D72.829 - Elevated white blood cell count, unspecified (3) Myositis Myositis location: unspecified site Myositis type: unspecified type Qualified Code(s): M60.9 - Myositis, unspecified
[2019-07-27] MEDS: CIPROFLOXACIN 500 MG TAB PO SCH (21:40)
[2019-07-28] MEDS: OXYCODONE HCL IR 5 MG TAB (IMMEDIATE RELEASE) PO PRN ×3 (00:04→21:28)
[2019-07-28] MEDS: KETOROLAC 30 MG/ML VIAL IV PRN ×3 (04:26→17:57)
[2019-07-28] MEDS: CIPROFLOXACIN 500 MG TAB PO SCH ×2 (08:23→21:29)
[2019-07-28] MEDS: LACTOBACILLUS ACIDOPHILUS (FLORANEX) TAB PO SCH ×4 (08:23→21:29)
[2019-07-28] MEDS: NICOTINE 14 MG/24 HR PATCH TD SCH (08:24)
[2019-07-28 09:05] LABS: Basophils # (auto) 0.05 K/uL (0-0.2); Basophils % (auto) 0.4 %; Eosinophils # (auto) 0.83 K/uL (0-0.5); Eosinophils % (auto) 6.7 %; Hemoglobin 11.1 g/dL (12.0-16.0); Immature Granulocytes % (auto) 0.8 %; Lymphocytes # (auto) 3.61 K/uL (1.2-3.4); Mean Platelet Volume 9.2 fL (7.4-10.4); Monocytes # (auto) 1.27 K/uL (0.11-0.59); Monocytes % (auto) 10.2 %; Neutrophils % (auto) 52.9 %; Platelet Count 484 K/uL (130-400); RDW Coefficient of Variation 13.2 % (11.5-14.5); RDW Standard Deviation 45.9 fL (36.4-46.3); Red Blood Count 3.58 M/uL (4.2-5.4); White Blood Count 12.46 K/uL (4.8-10.8)
[2019-07-28 09:07] LABS: Mean Corpuscular Hgb Conc 32.6 g/dL (32-36)
[2019-07-28] MEDS: ACETAMINOPHEN 325 MG TAB PO PRN (09:27)
--- NOTE | 2019-07-28 11:58 | Hospitalist Progress Note ---
Date of Service July 28, 2019 Assessment & Plan (1) Gram-positive cocci bacteremia: Patient presented with intractable back pain,- Symptom has improved No fever or chills leukocytosis improved: WBC 12 K today MRI of thoracic spine: Extensive muscle inflammation and abnormal enhancement in the right paraspinal musculature throughout the thoracic region. This is concerning for infectious myositis. Blood culture: MRSA, Antibiotic changed to daptomycin-per sensitivity Repeat blood culture no growth: transthoracic echo shows no valvular vegetation appreciate input from ID Patient will likely need prolonged course of abx 4-6 weeks Patient is not a cadidate for picc line due to ongoing drug use. Arrangement made for outpatient Dalvance 1500 mg x 1-can be given at [facility] /out pt clinic after discharge from hospital Still awaiting for medical secretary approval, as patient does not have medical assistance Continue IV daptomycin till patient's medical assistance coverage for outpatient IV Dalvance is approved UTI : urine culture e .coli Was treated with IV Rocephin and on p.o. ciprofloxacin total 5 days of treatment Patient denies of any urinary symptoms Leukocytosis Due to gram-positive bacteremia/MRSA Admission WBC was > 25 K . WBC/leukocytosis continues to improve-12K On IV daptomycin Need arrangements for outpatient IV Dalvance x1 dose Repeat blood cultures no growth Back pain: Possible secondary to Myositis: T-SPINE MRI: 1. Extensive muscle inflammation and abnormal enhancement in the right paraspinal musculature throughout the thoracic region. This is concerning for infectious myositis. 2. No abscess or epidural extension is appreciated. No associated evidence of septic facet arthritis or discitis osteomyelitis. However, there is associated trace right pleural effusion and pleuritis. L-SPINE MRI: 1. Normal MRI of the lumbar spine. 2. Cholelithiasis Appreciate input from spinal orthopedics, no role for surgery, recommend supportive care pain management, antibiotic for infection treatment Patient reports pain relief with IV PRN Toradol Ordered for Lidoderm patch, Encouraged to be out of bed, And can ambulate on the hallway (2) Back pain: Due to above, management as outlined (3) Leukocytosis: Leukocytosis continues to improve with antibiotic treatment (4) Myositis: . Possible Infectious myositis paraspinous musculature No sign of abscess, discitis or osteomyelitis on MRI spine cont abx as outlined above (5) IV drug abuse: H/O IV Heroin, IV Suboxone use. Reports last used 04/2019 -Urine tox screen + Counseling provided abstinence from drug abuse- (6) Hypokalemia: Corrected (7) Chronic hepatitis C: Not treated; Was following with plastic surgery manager in 2019 and was to have treatment however never followed up. LFTs WNL (8) Tobacco abuse: -Smoking cessation recommended -Nicotine patch DVT Prophylaxis -Low risk, ambulate Full Code Disposition: Does not have a family physician, does not have any medical insurance Waiting for medical assistance approval, outpatient IV antibiotic coverage Will need to establish with family physician as outpatient for follow-up care Admission and Anticipated Discharge Date Admission Date: July 22, 2019 Subjective Patient sitting up on chair, Still have back pain, worse with taking deep breath or coughing No fever chills No shortness of breath no dyspnea on exertion Review of Systems Musculoskeletal: + back pain (Improved) Physical Exam Constitutional: WD/WN, vitals as above + thin Eyes: PERRL, conjunctivae normal, anicteric sclerae + anicteric sclerae ENMT: external ear and nose normal, oropharynx normal Neck: trachea midline, no thyromegaly Respiratory: normal respiratory effort, lungs clear to auscultation Cardiovascular: RRR, no murmur, no edema Gastrointestinal (Abdomen): normal bowel sounds, soft, nontender, no hepatosplenomegaly Percussion/Palpation: abdomen soft; abdomen nontender Musculoskeletal: Spine: + limited thoraco-lumbar ROM (due to back pain ) Neurologic: PERRL, EOMI, accommodation nl, no face palsy, no dysarthria Psychiatric: A+Ox3, euthymic affect Results & Data ([facility]) Vital Signs (Past 12 Hours) Vital Signs Temp Pulse Resp BP Pulse Ox 07/28/19 06:33 36.2 C L 73 18 110/67 95 07/28/19 04:28 115/74 (1) Back pain Back pain laterality: unspecified Back pain location: thoracic back pain Chronicity: acute Qualified Code(s): M54.6 - Pain in thoracic spine (2) Leukocytosis Leukocytosis type: unspecified Qualified Code(s): D72.829 - Elevated white blood cell count, unspecified (3) Myositis Myositis location: unspecified site Myositis type: unspecified type Qualified Code(s): M60.9 - Myositis, unspecified
[2019-07-28] MEDS: DAPTOmycin 550 MG in SYRINGE 0 ML IV SCH (12:40)
[2019-07-28] MEDS: HYDROmorphone INJ 1 MG/ML SYRINGE IV PRN (13:00)
[2019-07-28] MEDS: LIDOCAINE 5% 1 PATCH TD SCH (13:24)
[2019-07-29 07:44] LABS: Basophils # (auto) 0.05 K/uL (0-0.2); Basophils % (auto) 0.5 %; Eosinophils # (auto) 0.77 K/uL (0-0.5); Eosinophils % (auto) 7.5 %; Hematocrit (blood only) 33.7 % (37-47); Hemoglobin 10.8 g/dL (12.0-16.0); Immature Granulocytes # (auto) 0.08 K/uL (0.00-0.02); Immature Granulocytes % (auto) 0.8 %; Lymphocytes # (auto) 4.13 K/uL (1.2-3.4); Lymphocytes % (auto) 40.2 %; Mean Corpuscular Hemoglobin 30.6 pg (25-34); Mean Corpuscular Volume 95.5 fL (80-100); Mean Platelet Volume 9.1 fL (7.4-10.4); Monocytes # (auto) 0.96 K/uL (0.11-0.59); Monocytes % (auto) 9.3 %; Neutrophils # (auto) 4.29 K/uL (1.4-6.5); Neutrophils % (auto) 41.7 %; Platelet Count 492 K/uL (130-400); RDW Coefficient of Variation 13.2 % (11.5-14.5); RDW Standard Deviation 45.8 fL (36.4-46.3); Red Blood Count 3.53 M/uL (4.2-5.4); White Blood Count 10.28 K/uL (4.8-10.8)
[2019-07-29] MEDS: LIDOCAINE 5% 1 PATCH TD SCH (08:47)
[2019-07-29] MEDS: NICOTINE 14 MG/24 HR PATCH TD SCH (08:47)
[2019-07-29] MEDS: LACTOBACILLUS ACIDOPHILUS (FLORANEX) TAB PO SCH ×2 (08:48→12:25)
[2019-07-29] MEDS: CIPROFLOXACIN 500 MG TAB PO SCH (08:48)
[2019-07-29] MEDS: DAPTOmycin 550 MG in SYRINGE 0 ML IV SCH (12:24)
--- NOTE | 2019-07-29 14:13 | Discharge Summary ---
Date of Service July 29, 2019 Admission HPI Per Admitting Provider Pt is 28 y/o F with PMH IV drug abuse, chronic hepatitis C, Chiari malformation, depression presented to ER with complaint of right upper back pain x 3 days. Complains of sharp pain over right scapular region which has increased over the past 3 days. Denies any radiation of pain. Denies pain to neck, lower back, arms or chest. Denies any noted skin discolorations or erythema over the area or any drainage. Denies any injury or trauma. Denies any injections to the area. History IV heroin and IV Suboxone use. Patient reports last used April 2019 and injects to arms only. Denies any noted fever or chills. States a little nauseated today which she associated secondary to pain. She took [id number] ibuprofen without relief and took 1 oxycodone which she reports was her family members medication without relief. Reports chronic acne to face, chest, back, denies any other known rashes. Denies diaphoresis, V/D/C, REAVES, dizziness, syncope, vision changes, neck pain, CP, SOB, orthopnea, palpitations, cough, sore throat, choking, otalgia, rhinorrhea, abdominal pain, paresthesias, weakness, extremity weakness, extremity edema, urinary symptoms. Admission Exam Per Admitting Provider General: no distress, WDWN Head: normocephalic, atraumatic Eyes: PERRL, EOM's intact, conjunctiva non-injected, anicteric ENT: normal inspection external ears, nose, mucous membranes moist Neck: supple, trachea midline, non-tender; ROM intact Lungs: clear, no respiratory distress, no wheezing/rhonchi/rales CV: RRR, no murmur, no pretibial edema Abd: normal BS, soft, non-tender Back: Right scapula with noted edema without erythema or warmth or fluctuance with tenderness to palpation with tenderness extending to right thoracic paraspi nous musculature. No spinous process tenderness to cervical, thoracic or lumbar spinous processes; ROM intact with tenderness with rotation Ext: no cyanosis, no calf tenderness; ROM bilateral upper and lower extremities intact, distal pulses intact, No noted abscesses Neuro: A&O x 3, no focal deficits noted, normal affect Skin: warm, dry; +erythematous papules to face, back, chest Principal Diagnosis MRSA BACTEREMIA Back pain Leukocytosis Myositis IV drug abuse Hypokalemia Chronic hepatitis C Tobacco abuse Discharge Exam Constitutional: WD/WN, vitals as above + thin Eyes: PERRL, conjunctivae normal, anicteric sclerae + anicteric sclerae ENMT: external ear and nose normal, oropharynx normal Neck: trachea midline, no thyromegaly Respiratory: normal respiratory effort, lungs clear to auscultation Cardiovascular: RRR, no murmur, no edema Gastrointestinal: normal bowel sounds, soft, nontender, no hepatosplenomegaly Percussion/Palpation: abdomen soft; abdomen nontender Musculoskeletal: + limited thoraco-lumbar ROM (due to back pain ) Neurologic: PERRL, EOMI, accommodation nl, no face palsy, no dysarthria Psychiatric: A+Ox3, euthymic affect Discharge Data Allergies Allergy/AdvReac Type Severity Reaction Status Date / Time No Known Allergies Allergy Unverified 07/22/19 08:35 Consultations 07/22/19 15:27 ED Decision to Admit Stat 07/23/19 06:50 Consult Orthopedic Surgery Routine 07/23/19 08:44 Consult Infectious Diseases Routine Ordered Studies 07/22/19 10:55 MR lumbar spine wo/w con Stat MR thoracic spine wo/w con Stat XR chest 2V PA/lateral CLINICAL HISTORY: 28 years-old Female presenting with right thoracic back pain. TECHNIQUE: PA and lateral views of the chest were obtained. COMPARISON: None. FINDINGS: Cardiomediastinal silhouette normal. Lungs and pleural spaces clear. Osseous structures normal. Upper abdomen normal. IMPRESSION: 1. No acute cardiopulmonary disease. ACT 112: Negative or not required by law. Electronically signed by: Jose Crawford M.D. 07/22/2019 10:13 AM Dictated: 07/22/19 1012 Transcribed: 07/22/19 1012 XR thoracic spine 3V routine CLINICAL HISTORY: right thoracic back pain COMPARISON STUDY: No previous studies for comparison. FINDINGS: No thoracic spine fracture is noted. No osseous lesion is identified by radiography. Patient is mildly rotated. Disc spaces are preserved. IMPRESSION: No thoracic spine fracture or subluxation. ACT 112: Negative or not required by law. Electronically signed by: Reece Kohler M.D. 07/22/2019 10:31 AM Dictated: 07/22/19 1026 Transcribed: 07/22/19 1027 MRI OF THE LUMBAR SPINE WITH AND WITHOUT CONTRAST CLINICAL HISTORY: back pain, ivda COMPARISON STUDY: No previous studies for comparison. TECHNIQUE: Utilizing a 1.5 Cary magnet and dedicated coil, multiplanar, multiecho imaging of the lumbar spine was performed before and after uneventful IV administration of 6 mL of Gadavist. FINDINGS: Alignment of the lumbar spine is anatomic. Vertebral body heights are maintained. There is no marrow edema or marrow placement. No intracanalicular mass or fluid collection is present. The conus terminates at the upper L1 level. Paravertebral soft tissues are unremarkable. Incidental note is made of small gallstones within the gallbladder. Disc spaces are preserved. L1-2: The central canal and neural foramen are patent. L2-3: The central canal and neural foramen are patent L3-4: The central canal and neural foramen are patent L4-5: The central canal and neural foramen are patent L5-S1: The central canal and neural foramen are patent IMPRESSION: 1. Normal MRI of the lumbar spine. 2. Cholelithiasis. ACT 112: Negative or not required by law. Electronically signed by: Reece Kohler M.D. 07/22/2019 2:41 PM Dictated: 07/22/19 1429 Transcribed: 07/22/19 1429 MR thoracic spine wo/w con CLINICAL HISTORY: 28 years-old Female presenting with back pain, ivda. TECHNIQUE: Multisequence, multiplanar MR imaging of the thoracic spine was performed before and after the administration of intravenous contrast. IV contr ast: 6 mL of Gadavist. COMPARISON: Radiographs from earlier the same day. FINDINGS: Localizer images: Unremarkable. Normal thoracic kyphosis. Vertebral bodies maintain normal height, alignment, an d bone marrow signal intensity. Intervertebral discs preserved apart from small disc osteophyte complex at T6-7, which does not result in significant spinal canal narrowing. No epidural collection. Muscle edema noted in the right paraspinal region extending from T1 superiorly to T10 inferiorly and most severely affecting the T3-T7 levels. Diffuse increased enhancement of this region on postcontrast imaging. Patchy enhancement without evidence of a rim-enhancing collection. No evidence of abscess. This abnormal enhancement does not appear to extend into the epidural region. There is also associated abnormal enhancement of the right pleura. Trace right pleural effusion noted. Flow-voids within the vasculature preserved. Visualized portion of the lung parenchyma with minimal dependent changes on the right. No focal nodule or infiltrate is appreciated allowing for the sensitivity of MRI. IMPRESSION: 1. Extensive muscle inflammation and abnormal enhancement in the right paraspinal musculature throughout the thoracic region. This is concerning for infectious myositis. 2. No abscess or epidural extension is appreciated. No associated evidence of septic facet arthritis or discitis osteomyelitis. However, there is associated trace right pleural effusion and pleuritis. ACT 112: Negative or not required by law. Electronically signed by: Jose Crawford M.D. 07/22/2019 2:36 PM Dictated: 07/22/19 142 Transcribed: 07/22/19 142 Hospital Course (1) Gram-positive cocci bacteremia: Patient presented with intractable back pain,- Symptom has improved No fever or chills leukocytosis improved: WBC 12 K today MRI of thoracic spine: Extensive muscle inflammation and abnormal enhancement in the right paraspinal musculature throughout the thoracic region. This is concerning for infectious myositis. Blood culture: MRSA, Antibiotic changed to daptomycin-per sensitivity Repeat blood culture no growth: transthoracic echo shows no valvular vegetation appreciate input from ID Patient will likely need prolonged course of abx 4-6 weeks Patient is not a cadidate for picc line due to ongoing drug use. so Arrangement made for outpatient Dalvance 1500 mg x 1-can be given at [facility] /out pt clinic after discharge from hospital Still awaiting for chief medical technologist approval, as patient does not have medical assistance Continue IV daptomycin till patient's medical assistance coverage for outpatient IV Dalvance is approved UTI : urine culture grew e .coli Initially was starting on Zosyn then transition to Rocephion on day # for 4 days, then cipro on 07/26 Patient denies of any urinary symptoms Completed course of abx Leukocytosis Due to gram-positive bacteremia/MRSA Admission WBC was > 25 K . WBC/leukocytosis continues to improve-12K -->10.2 today On IV daptomycin Need arrangements for outpatient IV Dalvance x1 dose Repeat blood cultures no growth Back pain: Possible secondary to Myositis: T-SPINE MRI: 1. Extensive muscle inflammation and abnormal enhancement in the right paraspinal musculature throughout the thoracic region. This is concerning for infectious myositis. 2. No abscess or epidural extension is appreciated. No associated evidence of septic facet arthritis or discitis osteomyelitis. However, there is associated trace right pleural effusion and pleuritis. L-SPINE MRI: 1. Normal MRI of the lumbar spine. 2. Cholelithiasis Appreciate input from spinal orthopedics, no role for surgery, recommend supportive care pain management, antibiotic for infection treatment Patient reports pain relief with IV PRN Toradol Ordered for Lidoderm patch, Encouraged to be out of bed, And can ambulate on the hallway (2) Back pain: Due to above, management as outlined (3) Leukocytosis: Leukocytosis continues to improve with antibiotic treatment (4) Myositis: . Possible Infectious myositis paraspinous musculature No sign of abscess, discitis or osteomyelitis on MRI spine cont abx as outlined above (5) IV drug abuse: H/O IV Heroin, IV Suboxone use. Reports last used 04/2019 -Urine tox screen + Counseling provided abstinence from drug abuse- (6) Hypokalemia: Corrected (7) Chronic hepatitis C: Not treated; Was following with bleacher lard in 2019 and was to have treatment however never followed up. LFTs WNL (8) Tobacco abuse: -Smoking cessation recommended -Nicotine patch DVT Prophylaxis -Low risk, ambulate Full Code Disposition: Follow up with your new PCP Dr. Pierre Schedule fo Dalvance infusion tomorrow at the [facility] Total Time Total Time Spent Total Time Spent (In Minutes): 35 minutes Total Time Includes: Examination of the Patient, Discharge Planning, Medication Reconciliation, Communication With Other Providers and Other Discharge Plan Discharge Items Patient Disposition: Home - Self-Care Reason For Visit: BACK PAIN,MYOSITIS Discharge Diagnosis: MRSA BACTEREMIA Back pain Leukocytosis Myositis IV drug abuse Hypokalemia Chronic hepatitis C Tobacco abuse Activity: As commented below Activity Comment: as tolerated Non-emergency contact: Primary Care Provider Call non-emergency contact if: you have any medication questions Follow-up/Referrals: Germán Pierre DO [Primary Care Provider] - 08/03/19 1:00 pm (08/03/2019 1:00 PM with Germán Pierre DO Family Practice [facility] ) Diet: Regular Addtl Attending Provider Instructions: Follow up with your primary care provider within 1 week Schedule for Dalvance at the [facility] tomorrow morning (vascular manager already arranged that) Follow up with Infectious disease Dr. Wilcox Counseling on smoking or any substance abuse cessation Pending Studies at Discharge: No Stand-Alone Forms: My [facility], Smoking Cessation Medications and DC Order Prescriptions: New Dalvance 500 mg solution 1,500 mg IV ONCE Qty: 1 RF: 0 Continued ibuprofen 200 mg Tablet 200 mg PO Q6H PRN (Reason: Pain) RF: 0 Discharge Orders: Discharge Order (Routine); Ordered 07/29/19 Ordered By: Jermaine Mcnally Admission Data Admit Date/Time: 07/22/19 16:02 Attending Provider: Jermaine Mcnally Admit Provider: Mariela Blanton Primary Care Provider: Germán Pierre Other Providers: Mariela Blanton ; Chris Huitron ; Leslie Walker ; Karolina Knowles
--- NOTE | 2019-07-31 11:06 | Coding Query ---
SEPSIS To promote full compliance with coding requirements relating to patient care, physician participation is requested in all cases of airport electrician uncertainty. Please assist us with the question(s) below: In responding to this query, please exercise your independent professional judgement. The fact that a question is asked does not imply that any particular answer is desired or expected. We appreciate your clarification on this issue. Coding Question: Gram Positive Sepsis was documented by the Infectious Disease specialist and Bacteremia was documented in the progress notes. Please clarify if the patient was treated for Sepsis or Bacteremia during their stay. Thank you so much for your help! (x) Bacteremia, present on admission (x) Sepsis, present on admission () Other, patient has: MTDD
== END 2019-07-29 16:58 | disposition home or self-care (01) | DRG 872 ==
LOC: ED 08:11 → SUATTDRO 16:02 → 2N 16:02 → 2W 07-23 10:50